=== PATIENT | male | born 1985 | race Caucasian/White ===

== ENCOUNTER 2025-08-09 06:13 | Inpatient (IN) | payer MEDICAID, SELFPAY ==
[2025-08-09] VITALS (9 sets, daily range): BP systolic 123–138; BP diastolic 65–100; PULSE 74–104; RESP 13–19; TEMP 36.7–37.3; O2SAT 93–99; BMI 31.1
--- NOTE | 2025-08-09 | ECG_ITS ---
Test Reason : SEIZURE Blood Pressure : */* mmHG Vent. Rate : 98 BPM Atrial Rate : 98 BPM P-R Int : 152 ms QRS Dur : 94 ms QT Int : 358 ms P-R-T Axes : 70 24 46 degrees QTcB Int : 457 ms Normal sinus rhythm Nonspecific ST abnormality Abnormal ECG No previous ECGs available Referred By: Generic ED Physician Electronically Signed By: SLADE TOMLIN MD
--- NOTE | ~2025-08-09 | CT_ITS ---
CLINICAL HISTORY: trauma, left orbital trauma CT maxillofacial without contrast Comparison: None provided Findings: No acute fractures. No dislocations. Temporomandibular joints are intact. There is ethmoid sinusitis. There is a large left periorbital and scalp hematoma. Visualized intracranial contents are within normal limits. No foreign bodies. IMPRESSION: 1. No acute bony abnormalities. 2. Large left periorbital and frontal scalp hematoma. 3. Ethmoid sinusitis. This document has been electronically signed by: Nathan Marroquin MD on 08/09/2025 07:54:58
--- NOTE | ~2025-08-09 | CT_ITS ---
CLINICAL HISTORY: trauma, head injury after seizure CT head without contrast Comparison: None provided Findings: No intra-axial mass, midline shift, hydrocephalus, or acute hemorrhage. No significant atrophy-like change or white matter disease. The visualized paranasal sinuses and mastoid air cells are normal. There is a large left frontal periorbital and scalp hematoma. No skull fracture. IMPRESSION: 1. No acute intracranial findings. 2. Large left frontal periorbital and scalp hematoma. This document has been electronically signed by: Nathan Marroquin MD on 08/09/2025 07:49:03
--- NOTE | ~2025-08-09 | XR_ITS ---
CLINICAL HISTORY: sob 1 view chest x-ray. Comparison: None provided Findings: The lungs appear clear. There is no consolidation, effusion, or pneumothorax. Cardiomediastinal silhouette is within normal limits. IMPRESSION: No acute cardiopulmonary abnormality. This document has been electronically signed by: Mp Fu MD on 08/10/2025 02:19:50
--- NOTE | ~2025-08-09 | CT_ITS ---
CLINICAL HISTORY: head injury, post-ictal CT cervical spine without contrast Comparison: None provided Findings: Normal vertebral body alignment. No significant degenerative change. No acute fractures or dislocations. No acute findings on limited view of the intracranial contents. No cervical fluid collections or masses. Lung apices are clear. IMPRESSION: No acute findings. This document has been electronically signed by: Nathan Marroquin MD on 08/09/2025 07:50:12
--- NOTE | 2025-08-09 06:22 | ED.GENADULT ---
HPI - General Adult General Chief complaint: Seizure Stated complaint: Seizure, Fall Headstrike Time Seen by Provider: 08/09/25 06:22 History of Present Illness ED Provider: Rahul GOLDSTEIN narrative: The patient is a 40-year-old male with a history of a seizure disorder and also opioid use disorder on methadone. He was apparently in the parking lot of the [facility] this morning. He says that he had driven himself to the methadone clinic at the [facility] for his usual morning dose. Apparently while in the parking lot he had a seizure. He had obvious trauma to the left forehead and was brought to the hospital. The patient remembers arriving at the hospital but does not remember anything else. The patient was not able to tell me his usual medications. I contacted the [facility] pharmacy and was told that he takes Depakote delayed release 500 mg b.i.d.. He also takes gabapentin 300 mg b.i.d.. The patient says he is an alcoholic. He has had an alcohol withdrawal seizure in the past. He says he has not had a drink for a few days. Related Data Home Medications ?Medication ?Instructions ?Recorded ?Confirmed acamprosate 333 mg tablet,delayed 333 mg PO TID 08/09/25 08/09/25 release clonidine HCl 0.1 mg tablet 0.1 mg PO TID PRN RLS 08/09/25 08/09/25 cyclobenzaprine 10 mg tablet 10 mg PO TID PRN muscle spasms 08/09/25 08/09/25 divalproex 500 mg tablet,delayed 500 mg PO Q12H 08/09/25 08/09/25 release gabapentin 300 mg capsule 300 mg PO BID 08/09/25 08/09/25 methocarbamol 750 mg tablet 750 mg PO TID PRN muscle relaxation 08/09/25 08/09/25 trazodone 50 mg tablet 50 - 100 mg PO BEDTIME PRN insomnia 08/09/25 08/09/25 Allergies Allergy/AdvReac Type Severity Reaction Status Date / Time No Known Allergies Allergy Verified 08/09/25 06:23 Review of Systems Review of Systems: Yes all other systems are reviewed and are negative FORMERLY [facility], [facility] Past Medical History Surgical History (Updated 09/15/21 @ 09:39 by VIOLET Elena) History of right inguinal hernia repair Family History Family History (Updated 09/15/21 @ 09:40 by VIOLET Elena) Mother Lung cancer Social History Social History Smoked in Last 30 Days: Yes Advance Directives: No Advance Directives Information Provided: No Physical Exam ED Vital Signs: Vital Signs - 24 hr 08/09/25 06:25 08/09/25 11:05 Temperature 98.6 F 98.6 F Pulse Rate 90 104 H Respiratory Rate 18 19 Blood Pressure 126/100 H 138/72 Pulse Oximetry 93 96 Oxygen Delivery Method Room Air Room Air BMI result Body Mass Index 31.1 Const Other: The patient is a chronically ill-appearing 40-year-old. He has a large area of swelling in the region of the left periorbital region. HENMT Other: There is a lot of soft tissue swelling in the region of the left eyebrow and to the left periorbital area generally. There is a laceration to the skin of the left upper eyelid. This is a horizontally oriented laceration that is parallel to the margin of the eyelid but does not involve the margin of the eyelid itself. Eyes Other: Pupils are round equal, extraocular movements are intact. The patient is able to open the left eye but only minimally because of the soft tissue swelling from the bruising. Nevertheless I was able to visualize the left eye and it looked quite uninjured. The left pupil appeared normal. The conjunctiva was normal as well. Eye movements seemed normal. There is a horizontally oriented laceration about 1.5 cm in length on the lower portion of the left upper eyelid. The laceration is parallel to the eyelid margin but does not cross the eyelid margin. The patient is able to open the eye and there was no suggestion that there is any injury to the tarsal plate. Neck Other: No posterior midline C-spine tenderness. The patient did not seem to have pain with moving his neck but I did not feel that he has a reliable exam given his recent seizure and the head injury. Resp Effort & Inspection: normal respiratory effort Auscultation: clear to auscultation bilaterally Cardio Rate: regular rate Rhythm: regular rhythm Heart sounds: S1 normal heart sound present and S2 normal heart sound present GI Other: Abdomen is soft and nontender Skin Other: The patient has soft tissue swelling of the left periorbital area associated with a laceration through the skin of the upper eyelid. Elsewhere the skin is unremarkable. Neuro Other: The patient was awake and alert. He had a very vague affect. Pupils were round equal, eye movements were intact, face was symmetrical, speech was without dysarthria or aphasia. He had symmetrical tone in his extremities. He had a non lateralizing exam. Extrem Other: No deformities or significant abnormality to the extremities. Medications Administered Generic Name Dose Route Start Last Admin Trade Name Sherrie PRN Reason Stop Dose Admin Enoxaparin Sodium 40 mg 08/09/25 15:00 08/09/25 16:34 Enoxaparin Sodium 40 Mg/0.4 Ml Syringe SUBCUT 40 mg Q24H PATRICIA Administration Lactated Ringer's 1,000 mls @ 100 mls/hr 08/09/25 16:45 08/09/25 16:40 Lr IVCONT 100 mls/hr .Q10H PATRICIA Administration Sodium Chloride 3 ml 08/09/25 16:00 08/09/25 16:36 0.9 % Sodium Chloride Flush 3 Ml Syringe IVFLUSH 3 ml QSHIFT PATRICIA Administration Discontinued Medications Generic Name Dose Route Start Last Admin Trade Name Sherrie PRN Reason Stop Dose Admin Bacitracin 1 appl 08/09/25 12:10 08/09/25 12:53 Bacitracin Oint 0.9 Gm Packet TOPICAL 08/09/25 12:11 1 appl ONCE ONE Administration Protocol Diazepam 10 mg 08/09/25 06:22 08/09/25 06:27 Diazepam 10 Mg/2 Ml Cartridge IVPUSH 08/09/25 06:23 10 mg STAT STA Administration Diazepam 10 mg 08/09/25 08:23 08/09/25 08:33 Diazepam 10 Mg/2 Ml Cartridge IVPUSH 08/09/25 08:24 10 mg STAT STA Administration Diazepam 10 mg 08/09/25 08:30 08/09/25 08:37 Diazepam 10 Mg/2 Ml Cartridge IVPUSH 08/09/25 08:31 10 mg STAT STA Administration Diazepam 10 mg 08/09/25 08:55 08/09/25 08:58 Diazepam 10 Mg/2 Ml Cartridge IVPUSH 08/09/25 08:56 10 mg STAT STA Administration Diazepam 10 mg 08/09/25 10:26 08/09/25 10:31 Diazepam 10 Mg/2 Ml Cartridge IVPUSH 08/09/25 10:27 10 mg STAT STA Administration Gabapentin 300 mg 08/09/25 10:26 08/09/25 10:48 Gabapentin 300 Mg Capsule PO 08/09/25 10:27 300 mg ONCE ONE Administration Valproic Acid 1,000 mg/ 60 mls @ 60 mls/hr 08/09/25 07:34 08/09/25 09:56 Dextrose IV 08/09/25 08:33 Infused ONCE ONE Infusion Lidocaine HCl 10 ml 08/09/25 10:54 08/09/25 11:47 Lidocaine Hcl 1 % Mpf 5 Ml Vial INFILTRATI 08/09/25 10:55 10 ml ONCE ONE Administration Methadone HCl 10 mg 08/09/25 08:23 08/09/25 11:47 Methadone Hcl 20 Mg/2 Ml Oral.Conc PO 08/09/25 08:24 10 mg ONCE ONE Administration Phenobarbital Sodium 452 mg 08/09/25 10:00 08/09/25 09:44 Phenobarbital Sodium 130 Mg/Ml Im Once IM 08/09/25 10:01 452 mg ONCE ONE Administration Phenobarbital Sodium 339 mg 08/09/25 13:00 08/09/25 16:34 Phenobarbital Sodium 130 Mg/Ml Vial Im Q3hx2 IM 08/09/25 16:01 339 mg Q3H PATRICIA Administration Procedures Laceration Laceration 1: Site: face (Left upper eyelid) Side (If applicable): left Size (cm): 1.5 Description: linear Depth: simple, single layer Local Anesthetic: lidocaine 1% (Administered under sterile conditions as a supraorbital nerve block) Amount of anesthesia used (mL): 3 Pre-repair: wound explored, irrigated extensively and deep structures intact Skin layer closed with: nylon Size (cm): 6-0 Number of sutures: 3 Medical Decision Making Medical Decision Making [facility] Narrative: The patient is a 40-year-old male who was brought to the hospital by ambulance after having had a seizure. I find on my initial evaluation I thought that he had simply had a breakthrough seizure because he has a history of a seizure disorder, apparently on Depakote. He was given 10 mg of Iv Diazepam Initially. Despite that he had a seizure in the emergency room and he received several additional doses of IV diazepam. He ultimately admitted to also being an alcoholic and having alcohol withdrawal seizures when the past and not having had any alcohol in the last couple of days. Interestingly the patient was going to a methadone clinic today where he apparently he receives only 10 mg of methadone daily. I contacted [facility]. [facility] was able to tell me that his usual medications are [address] prabhakar and gabapentin 300 mg BID. The patient was sent for CT scan of the head, facial bones, and cervical spine given the facial trauma. He has no signs of intracranial trauma facial fractures or cervical fracture. In addition to several doses of IV diazepam the patient was given 1000 mg of IV Depakote as his Depakote level was undetectable. The patient was ultimately able to admit to having not been compliant with his Depakote. Since the patient was having persistent tachycardia and a high CIWA scale he was also given phenobarbital. Ultimately he seemed to stabilize. At that point I was able to address his left eyelid laceration. I feel this is a superficial laceration to the skin of the upper eyelid rather than a laceration with the an injury to the underlying structure. I also felt there was no underlying ocular injury. Under sterile conditions I injected 1% lidocaine as a supraorbital nerve block to anesthetize his upper eyelid. The skin was prepped with Betadine. I cleaned the laceration with saline. I explored the wound. The underlying structures seemed intact. I closed the wound with 3 simple interrupted stitches using 6 0 Prolene with adequate wound edge approximation and hemostasis of the bleeding from the wound. Stitches should be removed in 5-7 days. Lab Data 08/09/25 06:25 08/09/25 06:25 Labs: Lab Results 08/09/25 08/09/25 08/09/25 Range/Units 06:25 09:32 12:08 WBC 8.6 (4.8-10.8) X10*3/uL RBC 4.65 (4.60-5.80) X10*6/uL Hgb 15.4 (14.0-18.0) g/dl Hct 43.6 (42.0-52.0) % MCV 93.8 (80.0-98.0) fL MCH 33.1 H (27.0-33.0) pg MCHC 35.3 (31.0-36.0) g/dl RDW 13.7 (11.0-16.0) % Plt Count 184 (160-400) X10*3/uL MPV 9.3 L (9.4-12.4) fL Immature Gran % (Auto) 0.8 H (0.0-0.4) % Neut % (Auto) 57.8 (45-73) % Lymph % (Auto) 28.1 (20-40) % [place] % (Auto) 8.8 (2-11) % Eos % (Auto) 3.0 (0-4) % Baso % (Auto) 1.5 (0-2) % Lymph # (Auto) 2.4 (1.2-4.9) X10*3/uL [place] # (Auto) 0.8 (0.1-1.2) X10*3/uL Eos # (Auto) 0.3 (0.0-0.4) X10*3/uL Baso # (Auto) 0.1 (0.0-0.2) X10*3/uL Abs Immat Gran (auto) 0.07 H (0.00-0.03) X10*3/uL Absolute Neuts (auto) 5.0 (2.0-8.3) x10*3/uL Absolute Nucleated RBC 0.000 (0.0-0.012) X10*3/uL Nucleated RBC % (auto) 0.0 (0.0-0.2) /100WBC Sodium 142 (135-145) mmol/L Potassium 3.8 (3.3-5.1) mmol/L Chloride 104 (96-108) mmol/L Carbon Dioxide 21 L (22-29) mmol/L Anion Gap 21 H (12-20) BUN 15 (9-16) mg/dL Creatinine 0.60 (0.5-1.4) mg/dL Estim Creat Clear Calc 194.3 Estimated GFR > 60 Random Glucose 159 H (60-115) mg/dL Lactic Acid 6.2 H* (0.5-2.0) mmol/L Lactic Acid F/U @ 2Hr 3.6 H* (0.5-2.0) mmol/L Lactic Acid F/U @ 4Hr 1.8 (0.5-2.0) mmol/L Calcium 10.0 (8.4-10.2) mg/dL Total Bilirubin 0.7 (0.0-1.0) mg/dL AST 98 H (5-37) U/L ALT 68 H (0-40) U/L Alkaline Phosphatase 91 (39-117) U/L Troponin I High Sens 4.6 (<3.5-35.0) ng/L Total Protein 8.0 (6.5-8.0) g/dL Albumin 4.8 (3.5-5.0) g/dL Valproic Acid < 12.5 L (50.0-100.0) mcg/mL Ethyl Alcohol < 10 mg/dL Critical Care Time Critical Care Time Critical Care Time: Yes Total Critical Care Time: 35 Attestation: The patient was critically ill with a high probability of imminent or life-threatening deterioration. ?I spent greater than 30 minutes of discontinuous time evaluating the patient, delivering critical care at the bedside, discussing evaluating data with consultants. ?Critical care time does not include time spent performing separately billable procedures or teaching. ?Time spent performing critical care with 35 minutes. Discharge Plan Discharge Clinical Impression: Seizure, Alcohol withdrawal, Left eyelid laceration, Traumatic contusion of left periorbital region Patient Disposition: Admitted As Inpatient
[2025-08-09] MEDS: diazePAM 10 MG/2 ML CARTRIDGE IVPUSH ×5 (06:27→10:31)
[2025-08-09 06:31] LABS: MANUAL DIFF FLAG NO
[2025-08-09 06:32] LABS: Hematocrit 43.6 % (42.0-52.0); Hemoglobin 15.4 g/dl (14.0-18.0); Imm Gran Abs Auto 0.07 X10*3/uL (0.00-0.03); Imm Gran Pct Auto 0.8 % (0.0-0.4); Lymphocytes Absolute Auto 2.4 X10*3/uL (1.2-4.9); Mean Corpuscular HGB Conc 35.3 g/dl (31.0-36.0); Mean Corpuscular Hemoglobin 33.1 pg (27.0-33.0); Mean Corpuscular Volume 93.8 fL (80.0-98.0); NRBC Abs Auto 0.000 X10*3/uL (0.0-0.012); NRBC Pct Auto 0.0 /100WBC (0.0-0.2); Platelet Count 184 X10*3/uL (160-400); Red Blood Count 4.65 X10*6/uL (4.60-5.80); White Blood Count 8.6 X10*3/uL (4.8-10.8)
--- NOTE | 2025-08-09 06:36 | PC.NURSE ---
pt came in [facility] after a seizure and a facial injury from the fall, pt L eye is swollen shut with a laceration on the eyelide and above the eyebrow. Pt unsure where he is, the day or year. provider bedside, medicated per MAR seizure precautions in.
[2025-08-09 06:58] LABS: Troponin-I High Sensitivity 4.6 ng/L (<3.5-35.0)
[2025-08-09 07:05] LABS: Alanine Aminotransferase 68 U/L (0-40); Albumin Level 4.8 g/dL (3.5-5.0); Alkaline Phosphatase 91 U/L (39-117); Anion Gap 21 (12-20); Aspartate Amino Transferase 98 U/L (5-37); Blood Urea Nitrogen 15 mg/dL (9-16); Calcium 10.0 mg/dL (8.4-10.2); Carbon Dioxide 21 mmol/L (22-29); Chloride 104 mmol/L (96-108); Creatinine Clr Calc Pharmacy 194.3; Estimated Glomerular Filt Rate > 60; Potassium 3.8 mmol/L (3.3-5.1); Sodium 142 mmol/L (135-145); Total Protein 8.0 g/dL (6.5-8.0)
[2025-08-09 08:29] LABS: Reflex Lactate? Lactic Acid Added
[2025-08-09] MEDS: Valproic Acid (as Sodium Salt) 1,000 MG in Dextrose 5 % 50 ML 60 MG IV (08:33)
--- OUTSIDE RECORDS SUMMARY | 2025-08-09 08:56 | XMS_ITS | Encounter Summary ---
Author Organization [facility] Address [address] [place] [address] [place] [id number] Phone Care Team Providers Care Orthopedic Rn Name Role Phone Pcp, Unknown Primary Care Provider Unavailabl e Encounter Details Date Type Department Care Team (Late st Contact Info) Description 02/02/2025 Procedure Pass [facility], Ct Scan - [facility] [address] [place] [address] Social History Tobacco Use Types Packs/Day Years Used Date Smoking Tobacco: Never Assessed Education Answer Date Recorded Are you interested in more education? Not on kathleen e 02/02/2025 Are you concerned about learning? Not on file 02/02/2025 No 02/02/2025 No 02/02/2025 Digital Access Answer Date Recorded No 02/02/2025 No 02/02/2025 Reliable internet access at home? Not on file 02/02/2025 Device with a working camera? Not on file Intimate Partner Violence Answer Date R ecorded Are you denied basic needs s uch as food, clothing, or medical care? No 02/02/2025 In the past 12 months have y ou been in a relationship with a person who hurts, threatens, or tries to control you? No 02/02/2025 Are you denied basic needs s uch as food, clothing, or medical care? No 02/02/2025 In the past 12 months have y ou been in a relationship with a person who hurts, threatens, or tries to control you? No 02/02/2025 Sex and Gender Information Value Date Recorded Sex Assigned at Not on file Legal Sex Male 5:18 PM EDT Gender Identity Not on file Sexual Orientation Not on file documented as of this encounter Functional Status * Calculated C-SSRS Risk Score (Lifetime/Recent) Answer Date of Assessment Author No Risk Indicated 02/02/2025 5:51 PM EDT Estevan Plata RN * [place] Suicide Severity Rating Scale (Screener/Recent Self-Report) Question Answer Date of Assessment Author 1. Wish to be (Past 1 Month) No 02/02/2025 5:51 PM EDT Estevan Plata RN 2. Non-Specific Active Suici mandi Thoughts (Past 1 Month) No 02/02/2025 5:51 PM EDT Kojo Plata RN 6. Suicidal Behavior (Lifetime) No 5:51 PM EDT Estevan Plata RN documented as of this encounter Plan of Treatment Not on file documented as of this encounter Visit Diagnoses Not on filedocumented in this encounter Additional Health Concerns Infection Onset Date Last Indicated Resolved Time CoV-Risk 02/02/2025 02/02/2025 02/13/2025 1:21 AM EDT documented as of this encounter Care Teams Orthopedic Rn Relationship Specialty Start Date End Date Pcp, Unknown PCP - General 02/02/25 documented as of this encounter Additional Source Comments The information contained in this document represents components of the legal health record. It is not the complete legal health record.[facility]
--- OUTSIDE RECORDS SUMMARY | 2025-08-09 08:56 | XMS_ITS | Clinical Summary ---
Author Organization [facility] Address [address] [place] [id number] Phone Care Team Providers Care Linoleum Layer Helper Name Role Phone Pcp, Unknown Primary Care Provider Unavailabl e Allergies No known active allergies Medications No known medications Social History Tobacco Use Types Packs/Day Years [...] on file Sexual Orientation Not on file Last Filed Vital Signs Vital Sign Reading Time Taken Comments Blood Pressure 133/84 02/02/2025 5:31 PM EDT Pulse 104 02/02/2025 5:31 PM EDT Temperature 36.2 C (97.2 F) 02/02/2025 5:31 PM EDT Respiratory Rate 22 02/02/2025 5:31 PM EDT Oxygen Saturation 93% 02/02/2025 5:31 PM EDT Inhaled Oxygen Concentration - - Weight - - Height - - Body Mass Index - - Plan of Treatment Health Maintenance Due Date Last Done Comments Adult Td,Tdap Booster 1983 LIPID PANEL 1983 DEPRESSION SCREENING 1995 SMOKING Hx and SMOKELESS TOB ACCO SCREENING 1996 HEPATITIS C SCREENING 2001 HIV ONE-TIME SCREENING (18-6 5 YEARS) 2001 INFLUENZA VACCINE (#1) 2025 COVID-19 VACCINE (2023-2 5 season) 2025 HEPATITIS A VACCINES Aged Out No long er eligible based on patient's age to complete this topic HIB VACCINES Aged Out No longer eligi ble based on patient's age to complete this topic MENINGOCOCCAL VACCINES (ACWY) Aged Out No longer eligible based on patient's age to complete this topic MENINGOCOCCAL VACCINES (B) Aged Out N o longer eligible based on patient's age to complete this topic PNEUMOCOCCAL VACCINES (0-49 years) Aged Out No longer eligible based on patient's age to complete this topic Medical Devices Not on file Care Teams Linoleum Layer Helper Relationship Specialty Start Date End Date Pcp, Unknown PCP - General 02/02/25 Additional Source Comments The information contained in this document represents components of the legal health record. It is not the complete legal health record.[facility]
--- NOTE | 2025-08-09 09:20 | PC.NURSE ---
Pt confused, ? posturing, not answering questions appropriately; no tonic-clonic activity noted, but marked mentation change; MD made aware and pt medicated per orders with more Valium; pt restless on stretcher and CIWA remains over 10
--- NOTE | 2025-08-09 09:30 | PC.NURSE ---
Pt reports this morning that he is withdrawing from ETOH and also didn't receive his daily 10mg of Methadone; pt noted to be tremulous at 0830; made aware; this RN was at bedside pushing IV Valium when pt began having grand mal seizure; non-rebreather applied at 15 ltr as pt was becoming cyanotic; another 10 ng Valium IVP gv by LIOR Benz; pt's IV Vaplroate started per orders IV; seizure activity last approx 3 minutes and pt post-ictal afterwards, pulling at lines and equipment; another 10mg IV Valium gv for agitation; pt still slightly restless; sitter at bedside for pt safety
[2025-08-09] MEDS: PHENobarbitaL sodium 130 MG/ML IM ONCE 452 MG IM (09:44)
--- NOTE | 2025-08-09 09:50 | PC.NURSE ---
Pt more oriented at this time; oriented to self, location ; confused to date and events; pt medicated per orders with IM phenobarbital; pt reports he drinks quite a bit of vodka daily; reports only one other withdrawal seizure in the past, unknown when; vss at this time; pt 95% RA; seizure precautions remain in place
[2025-08-09 10:29] LABS: ~Lactic Acid-LAB USE ONLY 3.6 mmol/L (0.5-2.0)
[2025-08-09 11:35] LABS: Reflex Lactate? 2 Y
[2025-08-09] MEDS: methADONE HCl 20 MG/2 ML ORAL.CONC 10 MG PO (11:47)
[2025-08-09] MEDS: Lidocaine HCl 1 % MPF 5 ML VIAL 10 ML INFILTRATI (11:47)
--- NOTE | 2025-08-09 11:51 | PC.NURSE ---
Pt less restless but remains anxious and visibly shaky; MD aware; vss; MD at bedside to suture L eyelid; pt tolerated well; 3 sutures to upper eyelid
[2025-08-09 12:30] LABS: ~Lactic Acid-LAB USE ONLY 1.8 mmol/L (0.5-2.0)
[2025-08-09] MEDS: PHENobarbitaL sodium 130 MG/ML VIAL IM Q3Hx2 339 MG IM ×2 (12:52→16:34)
--- NOTE | 2025-08-09 14:32 | PHA.MEDREC ---
Pharmacy Consult ? Medication Reconciliation Pharmacy has completed the medication reconciliation Used claim history as patient didn't know any medications. He says he hasnt taken them in a while.
--- NOTE | 2025-08-09 14:52 | PM.IMHP ---
History of Present Illness Date of Service: 08/09/25 Chief Complaint: Seizure, alcohol use 40-year-old man presented to the ER after a seizure and fall. Patient reports that this is the 2nd seizure he has had. He reports that he drinks at least a half a gal of vodka every day, he can not remember the last time he had been sober for a prolonged period of time. Apparently patient had a seizure fell and injured his left eye. He received 5 sutures. He was in the parking lot of [facility] [employer] because he went to go get his methadone and had a seizure and fell onto the pavement. Face CT showed no acute bony abnormalities, large left periorbital and frontal. Head and cervical spine CT negative for any acute abnormality. Initial lactic acid elevated at 6.2 but down to 1.8. Plan will be to admit patient for further management of likely alcohol withdrawal seizure. Review of Systems Review of Systems: Denies any recent fever chills or decrease in appetite respiratory denies any shortness of breath or cough cardiovascular denied chest pain gastrointestinal denies any dysphagia abdominal pain nausea vomiting or diarrhea genitourinary denies any dysuria frequency or hematuria musculoskeletal denies any joint pain or swelling neuropsych denies any weakness or seizures all other systems reviewed are negative [facility] Family History (Updated 09/15/21 @ 09:40 by VIOLET Elena) Mother Lung cancer Surgical History (Updated 09/15/21 @ 09:39 by VIOLET Elena) History of right inguinal hernia repair Social History Smoked in Last 30 Days: Yes Advance Directives: No Advance Directives Information Provided: No Meds Allergies Allergy/AdvReac Type Severity Reaction Status Date / Time No Known Allergies Allergy Verified 08/09/25 06:23 Active Medications: Current Medications Acetaminophen (Acetaminophen 325 Mg Tablet) 650 mg PO Q6H PRN PRN Reason: Pain, Mild 1-3,fever,headache Calcium Carbonate (Calcium Carbonate 750 Mg Tab.Chew) 750 mg PO Q4H PRN PRN Reason: Heartburn Enoxaparin Sodium (Enoxaparin Sodium 40 Mg/0.4 Ml Syringe) 40 mg SUBCUT Q24H [facility] Magnesium Hydroxide (Milk Of Magnesia 30 Ml Oral.Susp) 30 ml PO DAILY PRN PRN Reason: Constipation Melatonin (Melatonin 3 Mg Tablet) 6 mg PO BEDTIME PRN PRN Reason: Insomnia Pharmacy Consult (Consult Rx Etoh Phenob Im/Po) 1 each MISCELLANE ONCE PRN; Protocol PRN Reason: Consult order Phenobarbital (Phenobarbital 30 Mg Tablet) 60 mg PO BID [facility] Stop: 08/11/25 09:01 Phenobarbital (Phenobarbital 30 Mg Tablet) 30 mg PO BID [facility] Stop: 08/13/25 09:01 Phenobarbital (Phenobarbital 30 Mg Tablet) 30 mg PO DAILY [facility] Stop: 08/14/25 09:01 Phenobarbital Sodium (Phenobarbital Sodium 130 Mg/Ml Vial Im Q3hx2) 339 mg IM Q3H [facility] Stop: 08/09/25 16:01 Last Admin: 08/09/25 12:52 Dose: 339 mg Sodium Chloride (0.9 % Sodium Chloride Flush 3 Ml Syringe) 3 ml IVFLUSH QSHIFT [facility] Home Medications ?Medication ?Instructions ?Recorded ?Confirmed ?Last Taken ?Type acamprosate 333 mg tablet,delayed 333 mg PO TID 08/09/25 08/09/25 Unknown History release clonidine HCl 0.1 mg tablet 0.1 mg PO TID PRN RLS 08/09/25 08/09/25 Unknown History cyclobenzaprine 10 mg tablet 10 mg PO TID PRN muscle spasms 08/09/25 08/09/25 Unknown History divalproex 500 mg tablet,delayed 500 mg PO Q12H 08/09/25 08/09/25 Unknown History release gabapentin 300 mg capsule 300 mg PO BID 08/09/25 08/09/25 Unknown History methocarbamol 750 mg tablet 750 mg PO TID PRN muscle relaxation 08/09/25 08/09/25 Unknown History trazodone 50 mg tablet 50 - 100 mg PO BEDTIME PRN insomnia 08/09/25 08/09/25 Unknown History Physical Exam Vital Signs and Narrative: Vital Signs: Last Vital Signs Temp 98.6 F 08/09/25 11:05 Pulse 104 H 08/09/25 11:05 Resp 19 08/09/25 11:05 BP 138/72 08/09/25 11:05 Pulse Ox 96 08/09/25 11:05 O2 Del Method Room Air 08/09/25 11:05 BMI result Body Mass Index 31.1 Appearing in no acute distress head is normocephalic atraumatic eyes pupils are PERRLA sclera is anicteric mouth throat mucous membranes are intact and moist neck is supple no lymphadenopathy, no JVD noted lung sounds are clear to auscultation heart regular rate rhythm, clear S1, S2 positive bowel sounds, abdomen is soft, nontender neuro patient is alert x3, no focal deficits Results Labs 08/09/25 06:25 08/09/25 06:25 Labs: Laboratory Results - last 24 hr 08/09/25 08/09/25 08/09/25 06:25 09:32 12:08 MCV 93.8 MCH 33.1 H MCHC 35.3 RDW 13.7 Plt Count 184 MPV 9.3 L Immature Gran % (Auto) 0.8 H Neut % (Auto) 57.8 Lymph % (Auto) 28.1 [place] % (Auto) 8.8 Eos % (Auto) 3.0 Baso % (Auto) 1.5 Lymph # (Auto) 2.4 [place] # (Auto) 0.8 Eos # (Auto) 0.3 Baso # (Auto) 0.1 Abs Immat Gran (auto) 0.07 H Absolute Neuts (auto) 5.0 Absolute Nucleated RBC 0.000 Nucleated RBC % (auto) 0.0 Anion Gap 21 H Estim Creat Clear Calc 194.3 Estimated GFR > 60 Random Glucose 159 H Lactic Acid 6.2 H* Lactic Acid F/U @ 2Hr 3.6 H* Lactic Acid F/U @ 4Hr 1.8 Calcium 10.0 Total Bilirubin 0.7 AST 98 H ALT 68 H Alkaline Phosphatase 91 Total Protein 8.0 Albumin 4.8 Valproic Acid < 12.5 L Ethyl Alcohol < 10 Assessment and Plan (1) Alcohol withdrawal: Status: Acute Plan 40 year old man admitted with breakthrough seizure Breakthrough seizure Seizure precautions Neurology consultation Likely secondary to alcohol withdrawal Alcohol withdrawal seizure On phenobarbital Seizure precautions Lactic acidosis Likely secondary to seizure, resolved Mental health Continue home medications Opiate abuse On methadone Alcohol abuse Started on phenobarbital protocol Transaminitis Likely secondary to alcohol use Obesity class 1. BMI 31.1 Discussed importance of weight management as this may be contributing to worsening of other comorbidities DVT prophylaxis with Lovenox Full code Quality Stroke Does the patient have a stroke diagnosis?: No VTE Prior VTE?: No VTE Risk Level:: Medical - moderate - high VTE Device Contraindication: Treatment Not Indicated VTE Drug Contraindication: N/A - Med Ordered
--- NOTE | 2025-08-09 16:23 | PC.NURSE ---
Pt relaxed at this time; feels warm to the touch; rectal temp 100.2; provider made aware; UA pending; vss@baseline; S.O. at bedside
[2025-08-09 16:35] LABS: Appearance Urine Turbid; Glucose Urine UA Negative (Negative); PH 5.5 (5.0-9.0); Specific Gravity - Urine 1.020 (1.005-1.025); UMIC TRIGGER UACC YES
[2025-08-09] MEDS: 0.9 % Sodium Chloride Flush 3 ML SYRINGE IVFLUSH (16:36)
[2025-08-09] MEDS: Lactated Ringers 1,000 ML 100 ML IVCONT (16:40)
[2025-08-09 16:44] LABS: Cannabinoid Screen Urine Not Detected (Not Detect)
--- NOTE | 2025-08-09 20:18 | PC.NURSE ---
pt used urinal in bed. 425mls orange/red output. c/o shoulder pain at this time
--- NOTE | 2025-08-09 20:38 | PC.NURSE ---
Patient repositioned to the right side to give left shoulder a break. Patient given a pillow to off load shoulder due to pain. Pt given flexeril for pain relief. VSS, given water with medication. Patient resting comfortably, checked if anything is needed in the meantime. Pt stated no, call brown by side. Siderails up, covered with seizure pads.
--- NOTE | 2025-08-09 21:20 | PC.NURSE ---
pt noted to be very diaphoretic, gown and blankets wet, new gown given, blanket changed, pt wiped sweat off face and body. no complaints at this time, did not know he was sweating, was resting. rectal temp taken 99.1.
--- NOTE | 2025-08-09 22:40 | PC.NURSE ---
Patient having multiple periods drenched in sweat, causing a total bed change. Made Mike Vargas aware, stated to monitor and give fluids as patient has been on LR maintenance fluids. Also made aware that there are no PRN meds for a high scoring CIWA.
--- NOTE | 2025-08-09 23:10 | PC.NURSE ---
Spoke with Mike Vargas, dextrose, thiamine, and D5LR were discussed to be ordered for patient, along with a CXR. Still monitoring periods of sweat, watching for tachycardia, dyspnea or changes in vitals.
[2025-08-09] MEDS: Thiamine HCL 100 MG in 0.9 % Sodium Chloride 100 ML 202 MG IV (23:21)
[2025-08-09] MEDS: Dextrose 5 % and Lactated Ring 1,000 ML 100 ML IVCONT (23:21)
[2025-08-10] VITALS (7 sets, daily range): BP systolic 112–143; BP diastolic 64–84; PULSE 69–87; RESP 12–18; TEMP 36.2–36.9; O2SAT 95–97
--- NOTE | 2025-08-10 01:42 | PC.NURSE ---
500mls orange urine in urinal
--- NOTE | 2025-08-10 07:19 | HO.PM.IMPN ---
Subjective Subjective Date of Service: 08/10/25 Interval History: Admitted overnight Initiated on phenobarb for alcohol withdrawal Fiancee at the bedside Continue to monitor on telemetry Pain control with Tylenol and Oxy Review of Systems Review of Systems: Yes all other systems are reviewed and are negative Physical Exam Exam: Exam: General: AOx3, mildly somnolent, has multiple bruises on his left upper face Resp: CTA bilaterally CVS: S1, S2, RRR GI: +BS, NT, no distention Left arm in sling s/p fall Vital Signs: Vital Signs: Last Vital Signs Temp 98.4 F 08/10/25 06:08 Pulse 72 08/10/25 06:08 Resp 17 08/10/25 06:08 BP 112/65 08/10/25 06:08 Pulse Ox 96 08/10/25 06:08 O2 Del Method Room Air 08/10/25 06:08 BMI result Body Mass Index 31.1 Objective Data Active Medications Acetaminophen (Acetaminophen 325 Mg Tablet) 650 mg PO Q6H PRN PRN Reason: Pain, Mild 1-3,fever,headache Last Admin: 08/09/25 18:22 Dose: 650 mg Documented By: SALONI Calcium Carbonate (Calcium Carbonate 750 Mg Tab.Chew) 750 mg PO Q4H PRN PRN Reason: Heartburn Clonidine HCl (Clonidine Hcl 0.1 Mg Tablet) 0.1 mg PO TID PRN; Protocol PRN Reason: RLS Cyclobenzaprine HCl (Cyclobenzaprine Hcl 10 Mg Tablet) 10 mg PO TID PRN PRN Reason: muscle spasms Last Admin: 08/09/25 20:26 Dose: 10 mg Documented By: DIANA Divalproex Sodium (Divalproex Sodium 500 Mg Tablet.Dr) 500 mg PO Q12H [facility] Last Admin: 08/10/25 06:36 Dose: 500 mg Documented By: DIANA Enoxaparin Sodium (Enoxaparin Sodium 40 Mg/0.4 Ml Syringe) 40 mg SUBCUT Q24H [facility] Last Admin: 08/09/25 16:34 Dose: 40 mg Documented By: SALONI Gabapentin (Gabapentin 300 Mg Capsule) 300 mg PO BID [facility] Last Admin: 08/09/25 20:27 Dose: 300 mg Documented By: DIANA Lactated Ringer's (Lr) 1,000 mls @ 100 mls/hr IVCONT .Q10H [facility] Last Admin: 08/10/25 00:24 Dose: Not Given Documented By: DIANA Non-Admin Reason: Duplicate Order Thiamine HCl 100 mg/ Sodium (Chloride) 101 mls @ 202 mls/hr IV DAILY [facility] Last Infusion: 08/10/25 00:09 Dose: Infused Documented By: DIANA Dextrose/Lactated Ringer's (D5lr) 1,000 mls @ 100 mls/hr IVCONT .Q10H [facility] Last Admin: 08/09/25 23:21 Dose: 100 mls/hr Documented By: DIANA Magnesium Hydroxide (Milk Of Magnesia 30 Ml Oral.Susp) 30 ml PO DAILY PRN PRN Reason: Constipation Melatonin (Melatonin 3 Mg Tablet) 6 mg PO BEDTIME PRN PRN Reason: Insomnia Methocarbamol (Methocarbamol 750 Mg Tablet) 750 mg PO TID PRN PRN Reason: muscle relaxation Pharmacy Consult (Consult Rx Etoh Phenob Im/Po) 1 each MISCELLANE ONCE PRN; Protocol PRN Reason: Consult order Phenobarbital (Phenobarbital 30 Mg Tablet) 60 mg PO BID [facility] Stop: 08/11/25 09:01 Last Admin: 08/09/25 20:26 Dose: 60 mg Documented By: DIANA Phenobarbital (Phenobarbital 30 Mg Tablet) 30 mg PO BID [facility] Stop: 08/13/25 09:01 Phenobarbital (Phenobarbital 30 Mg Tablet) 30 mg PO DAILY [facility] Stop: 08/14/25 09:01 Sodium Chloride (0.9 % Sodium Chloride Flush 3 Ml Syringe) 3 ml IVFLUSH QSHIFT [facility] Last Admin: 08/10/25 06:36 Dose: Not Given Documented By: DIANA Non-Admin Reason: IV Running Labs 08/10/25 08:00 08/10/25 08:00 Labs: Laboratory Results - last 24 hr 08/09/25 08/09/25 08/09/25 06:25 09:32 12:08 Lactic Acid Lactic Acid F/U @ 2Hr 3.6 H* Lactic Acid F/U @ 4Hr 1.8 Urine Color Urine Appearance Urine pH Ur Specific [place] Urine Protein Urine Glucose (UA) Urine Ketones Urine Blood Urine Nitrite Ur Leukocyte Esterase Urine RBC Urine WBC Ur Squamous Epith Cells Urine Bacteria Hyaline Casts Urine Opiates Screen Ur Buprenorphine Scrn Ur Oxycodone Screen Urine Methadone Screen Urine Fentanyl Screen Ur Barbiturates Screen Ur Phencyclidine Scrn Ur Amphetamines Screen U Benzodiazepines Scrn Urine Cocaine Screen U Marijuana (THC) Screen Ethyl Alcohol < 10 08/09/25 08/09/25 14:00 23:28 Lactic Acid 2.0 Lactic Acid F/U @ 2Hr Lactic Acid F/U @ 4Hr Urine Color Yellow Urine Appearance Turbid Urine pH 5.5 Ur Specific [place] 1.020 Urine Protein 100 (2+) H Urine Glucose (UA) Negative Urine Ketones Trace Urine Blood Trace H Urine Nitrite Negative Ur Leukocyte Esterase Negative Urine RBC 0-2 Urine WBC 0-5 Ur Squamous Epith Cells 0-2 Urine Bacteria None Seen Hyaline Casts 0-2 Urine Opiates Screen Not Detected Ur Buprenorphine Scrn Not Detected Ur Oxycodone Screen Not Detected Urine Methadone Screen Positive H Urine Fentanyl Screen Not Detected Ur Barbiturates Screen Not Detected Ur Phencyclidine Scrn Not Detected Ur Amphetamines Screen Not Detected U Benzodiazepines Scrn Not Detected Urine Cocaine Screen Not Detected U Marijuana (THC) Screen Not Detected Ethyl Alcohol Assessment and Plan (1) Seizures concurrent with and due to substance withdrawal: Status: Acute Plan Patient with PMH notable for alcohol use disorder, EDWIN on methadone presented to the ED with what is likely presumed to be alcohol withdrawal seizures as he was returning from his methadone clinic. He is being admitted for monitoring and management of alcohol withdrawal seizures Alcohol use disorder, presenting with likely alcohol withdrawal seizures Patient is being placed on phenobarb for alcohol withdrawal Seizure precautions , acute intracranial pathology ruled out If the patient has another seizure, we will get an EEG and initiate seizure meds, however it is not indicated at this time Substance use disorder Continue methadone Addiction med consult DVT prophylaxis with Lovenox This note is constructed using voice recognition software. While every effort has been made to ensure accuracy, line helper errors may have been included. Quality Stroke Does the patient have a stroke diagnosis?: No VTE Prior VTE?: No VTE Risk Level:: Medical - moderate - high VTE Device Contraindication: Treatment Not Indicated VTE Drug Contraindication: N/A - Med Ordered
[2025-08-10 08:26] LABS: Magnesium 1.8 mg/dL (1.6-2.6); NRBC Abs Auto 0.000 X10*3/uL (0.0-0.012); NRBC Pct Auto 0.0 /100WBC (0.0-0.2); PLT CLUMP 1
[2025-08-10 08:28] LABS: Hematocrit 41.7 % (42.0-52.0); Hemoglobin 14.2 g/dl (14.0-18.0); Mean Corpuscular HGB Conc 34.1 g/dl (31.0-36.0); Mean Corpuscular Hemoglobin 32.4 pg (27.0-33.0); Mean Corpuscular Volume 95.2 fL (80.0-98.0); Red Blood Count 4.38 X10*6/uL (4.60-5.80)
[2025-08-10 08:34] LABS: Platelet Count 139 X10*3/uL (160-400); White Blood Count 8.5 X10*3/uL (4.8-10.8)
[2025-08-10 08:39] LABS: Anion Gap 13 (12-20); Blood Urea Nitrogen 8 mg/dL (9-16); Calcium 9.2 mg/dL (8.4-10.2); Carbon Dioxide 29 mmol/L (22-29); Chloride 100 mmol/L (96-108); Creatinine Clr Calc Pharmacy 182.1; Estimated Glomerular Filt Rate > 60; Potassium 4.2 mmol/L (3.3-5.1); Sodium 138 mmol/L (135-145)
[2025-08-10 08:51] LABS: Thyroid Stimulating Hormone 0.52 uIU/mL (0.32-4.0)
[2025-08-10] MEDS: Thiamine HCL 100 MG in 0.9 % Sodium Chloride 100 ML 202 MG IV (10:18)
[2025-08-10] MEDS: Dextrose 5 % and Lactated Ring 1,000 ML 100 ML IVCONT ×2 (10:46→21:03)
[2025-08-10] MEDS: Lactated Ringers 1,000 ML 100 ML IVCONT (11:00)
--- NOTE | 2025-08-10 15:28 | MHC.CM.PN ---
Addendum entered by Clara Charlton 08/10/25 15:57: PT REPORTS HE LIVES WITH HIS [facility]ANCE AND IS INDEPENDENT WITH CARE HE HAS NO DME AND NO SERVICES DECLINES A HCP PT SAYS RONALD DAVID IS NO LONGER HIS PCP, HE WILL GET THE INFO FOR [facility] NEW ONE. DCP: HOME VIA PRIVATE TRANSPORT Original Note: CM ATTEMPTED TO MEET WITH PT WHO WAS SLEEPING AND DID NOT WAKE TO MULTIPLE ATTEMPTS CM TO REVISIT
--- NOTE | 2025-08-10 17:23 | HE.PHANOTE ---
METHADONE CONFIRMATION FORM PATIENT TAKES 10 MG FROM [facility]. LAST DOSE 08/08 @ 531PM
[2025-08-10] MEDS: methADONE HCl 20 MG/2 ML ORAL.CONC 10 MG PO (18:39)
[2025-08-10] MEDS: Nicotine 21 MG PATCH.TD24 TRANSDERMA (21:01)
[2025-08-10] MEDS: 0.9 % Sodium Chloride Flush 3 ML SYRINGE IVFLUSH (21:06)
[2025-08-11] VITALS (8 sets, daily range): BP systolic 114–133; BP diastolic 64–79; PULSE 69–83; RESP 16–18; TEMP 36.6–37.1; O2SAT 94–99
--- NOTE | 2025-08-11 | EEG_ITS ---
Room: 1st floor lab Reason For EEG: Seizure Medications: tylenol, calcium carbonbate, clonidine, cyclobenzaprine, divaloproex sodium, enoxaparin, gabapentin, thiamine, melatonin, methadone trazodone, phenobarbital, oxycodone, methocarbamol History: H/O seizures, opioid use on methadone, h/o hernia repair- 08/11/25 pt had an event of seizure like activity - hitting his head left side on a side walk- pt has a laceration and bruise on the left side face/eye region, shoulder and back- pt does not recall details of events - pt was on seizures meds in past but has not been compliant Clinical Observation: No clinical changes noted during study Paving Inspector Comments Photic stimulation: Completed Hyperventilation: performed - fair effort Behavioral state: cooperative but restless State of consciousness: awake Skull defect: no Sedation: no Handedness: Right Duration of study:31mins 12 secs Description: This is a 16 channel EEG with an EKG lead. Patient is reported awake during the tracing. Background EEG rhythm is low amplitude fast with no obvious asymmetry or paroxysmal tendency. Photic stimulation does not produce any significant abnormality. Hyperventilation is unremarkable. Cardiac lead does not reveal any significant abnormality. No sharp wave spikes or paroxysmal tendency noted. Impression: Unremarkable EEG. MTDD
[2025-08-11] MEDS: oxyCODONE HCl Immed Release 5 MG TABLET PO ×2 (03:33→11:13)
[2025-08-11] MEDS: Dextrose 5 % and Lactated Ring 1,000 ML 100 ML IVCONT ×2 (06:17→16:45)
[2025-08-11 06:53] LABS: MANUAL DIFF FLAG NO
[2025-08-11] MEDS: Lactated Ringers 1,000 ML 100 ML IVCONT (07:00)
[2025-08-11 07:03] LABS: Hematocrit 41.4 % (42.0-52.0); Hemoglobin 14.0 g/dl (14.0-18.0); Imm Gran Abs Auto 0.03 X10*3/uL (0.00-0.03); Imm Gran Pct Auto 0.4 % (0.0-0.4); Lymphocytes Absolute Auto 2.0 X10*3/uL (1.2-4.9); Mean Corpuscular HGB Conc 33.8 g/dl (31.0-36.0); Mean Corpuscular Hemoglobin 33.2 pg (27.0-33.0); Mean Corpuscular Volume 98.1 fL (80.0-98.0); NRBC Abs Auto 0.000 X10*3/uL (0.0-0.012); NRBC Pct Auto 0.0 /100WBC (0.0-0.2); Platelet Count 126 X10*3/uL (160-400); Red Blood Count 4.22 X10*6/uL (4.60-5.80); White Blood Count 8.0 X10*3/uL (4.8-10.8)
[2025-08-11 07:23] LABS: Alanine Aminotransferase 33 U/L (0-40); Albumin Level 4.0 g/dL (3.5-5.0); Alkaline Phosphatase 61 U/L (39-117); Anion Gap 11 (12-20); Aspartate Amino Transferase 33 U/L (5-37); Blood Urea Nitrogen 7 mg/dL (9-16); Calcium 8.7 mg/dL (8.4-10.2); Carbon Dioxide 29 mmol/L (22-29); Chloride 104 mmol/L (96-108); Creatinine Clr Calc Pharmacy 253.4; Estimated Glomerular Filt Rate > 60; Potassium 4.0 mmol/L (3.3-5.1); Sodium 140 mmol/L (135-145); Total Protein 6.7 g/dL (6.5-8.0)
--- NOTE | 2025-08-11 07:34 | HO.PM.IMPN ---
Subjective Subjective Date of Service: 08/11/25 Interval History: Neurology consulted -initiated on levetiracetam 750 mg p.o. b.i.d. EEG ordered Fiancee at the bedside Strong nicotine smell Physical Exam Exam: Exam: General: AOx3, has multiple bruises in various healing stages on his left upper face Resp: CTA bilaterally CVS: S1, S2, RRR GI: +BS, NT, no distention Left arm in sling s/p fall Vital Signs: Vital Signs: Last Vital Signs Temp 98.7 F 08/11/25 03:19 Pulse 74 08/11/25 04:33 Resp 16 08/11/25 04:33 BP 130/79 08/11/25 03:19 Pulse Ox 96 08/11/25 03:19 O2 Del Method Room Air 08/11/25 03:19 BMI result Body Mass Index 31.1 Objective Data Active Medications Acetaminophen (Acetaminophen 325 Mg Tablet) 650 mg PO Q6H [facility] Last Admin: 08/11/25 03:32 Dose: 650 mg Documented By: HOWARD Calcium Carbonate (Calcium Carbonate 750 Mg Tab.Chew) 750 mg PO Q4H PRN PRN Reason: Heartburn Clonidine HCl (Clonidine Hcl 0.1 Mg Tablet) 0.1 mg PO TID PRN; Protocol PRN Reason: RLS Cyclobenzaprine HCl (Cyclobenzaprine Hcl 10 Mg Tablet) 10 mg PO TID PRN PRN Reason: muscle spasms Last Admin: 08/09/25 20:26 Dose: 10 mg Documented By: DIANA Cyclobenzaprine HCl (Cyclobenzaprine Hcl 5 Mg Tablet) 5 mg PO TID [facility] Last Admin: 08/10/25 21:05 Dose: 5 mg Documented By: HOWARD Divalproex Sodium (Divalproex Sodium 500 Mg Tablet.) 500 mg PO Q12H [facility] Last Admin: 08/11/25 06:13 Dose: 500 mg Documented By: HOWARD Enoxaparin Sodium (Enoxaparin Sodium 40 Mg/0.4 Ml Syringe) 40 mg SUBCUT Q24H [facility] Last Admin: 08/10/25 17:03 Dose: Not Given Documented By: ABIEL Non-Admin Reason: Patient Refused Gabapentin (Gabapentin 300 Mg Capsule) 300 mg PO BID [facility] Last Admin: 08/10/25 21:05 Dose: 300 mg Documented By: HOWARD Guaifenesin (Guaifenesin 200 Mg/10 Ml 10 Ml Liquid) 30 ml PO TID PRN PRN Reason: Cough Lactated Ringer's (Lr) 1,000 mls @ 100 mls/hr IVCONT .Q10H [facility] Last Admin: 08/10/25 22:03 Dose: Not Given Documented By: HOWARD Non-Admin Reason: D5/LR infusing Thiamine HCl 100 mg/ Sodium (Chloride) 101 mls @ 202 mls/hr IV DAILY [facility] Last Infusion: 08/10/25 10:55 Dose: Infused Documented By: ABIEL Dextrose/Lactated Ringer's (D5lr) 1,000 mls @ 100 mls/hr IVCONT .Q10H [facility] Last Admin: 08/11/25 06:17 Dose: 100 mls/hr Documented By: HOWARD Lidocaine (Lidocaine 4 % Patch Adh..Patch) 2 patch TRANSDERMA DAILY [facility]; Protocol Magnesium Hydroxide (Milk Of Magnesia 30 Ml Oral.Susp) 30 ml PO DAILY PRN PRN Reason: Constipation Melatonin (Melatonin 3 Mg Tablet) 6 mg PO BEDTIME PRN PRN Reason: Insomnia Methadone HCl (Methadone Hcl 20 Mg/2 Ml Oral.Conc) 10 mg PO DAILY [facility] Last Admin: 08/10/25 18:39 Dose: 10 mg Documented By: ABIEL Co-signed By: BLAS Methocarbamol (Methocarbamol 750 Mg Tablet) 750 mg PO TID PRN PRN Reason: muscle relaxation Last Admin: 08/10/25 15:39 Dose: 750 mg Documented By: ABIEL Nicotine (Nicotine 21 Mg Patch.Td24) 21 mg TRANSDERMA DAILY [facility] Last Admin: 08/10/25 21:01 Dose: 21 mg Documented By: HOWARD Comments: Okay to apply now per Dr. Cifuentes via [employer] as pt requested now Nicotine Polacrilex (Nicotine Polacrilex Lozenge 2 Mg Lozenge) 2 mg BUCCAL Q1H PRN PRN Reason: Nicotine Cravings Oxycodone HCl (Oxycodone Hcl Immed Release 5 Mg Tablet) 5 mg PO Q6H PRN PRN Reason: Pain, Moderate(Pain Scale 4-6) Last Admin: 08/11/25 03:33 Dose: 5 mg Documented By: HOWARD Pharmacy Consult (Consult Rx Etoh Phenob Im/Po) 1 each MISCELLANE ONCE PRN; Protocol PRN Reason: Consult order Phenobarbital (Phenobarbital 30 Mg Tablet) 60 mg PO BID [facility] Stop: 08/11/25 09:01 Last Admin: 08/10/25 21:05 Dose: 60 mg Documented By: HOWARD Phenobarbital (Phenobarbital 30 Mg Tablet) 30 mg PO BID [facility] Stop: 08/13/25 09:01 Phenobarbital (Phenobarbital 30 Mg Tablet) 30 mg PO DAILY [facility] Stop: 08/14/25 09:01 Sodium Chloride (0.9 % Sodium Chloride Flush 3 Ml Syringe) 3 ml IVFLUSH QSHIFT [facility] Last Admin: 08/10/25 21:06 Dose: 3 ml Documented By: HOWARD Trazodone HCl (Trazodone Hcl 50 Mg Tablet) 50 mg PO BEDTIME PRN PRN Reason: Insomnia Labs 08/11/25 06:32 08/11/25 06:32 Labs: Laboratory Results - last 24 hr 08/10/25 08/11/25 08:00 06:32 MCV 95.2 98.1 H MCH 32.4 33.2 H MCHC 34.1 33.8 RDW 13.3 13.5 Plt Count 139 L 126 L MPV 9.9 9.7 Immature Gran % (Auto) 0.4 Neut % (Auto) 61.3 Lymph % (Auto) 25.2 Giles % (Auto) 8.6 Eos % (Auto) 3.9 Baso % (Auto) 0.6 Lymph # (Auto) 2.0 Giles # (Auto) 0.7 Eos # (Auto) 0.3 Baso # (Auto) 0.1 Abs Immat Gran (auto) 0.03 Absolute Neuts (auto) 4.9 Absolute Nucleated RBC 0.000 0.000 Nucleated RBC % (auto) 0.0 0.0 Anion Gap 13 11 L Estim Creat Clear Calc 182.1 253.4 Estimated GFR > 60 > 60 Random Glucose 119 H 106 Calcium 9.2 D 8.7 Magnesium 1.8 Total Bilirubin 0.8 AST 33 ALT 33 Alkaline Phosphatase 61 Total Protein 6.7 Albumin 4.0 TSH 0.52 Assessment and Plan (1) Seizures concurrent with and due to substance withdrawal: Status: Acute Plan Patient with PMH notable for alcohol use disorder, EDWIN on methadone presented to the ED with what is likely presumed to be alcohol withdrawal seizures as he was returning from his methadone clinic. He is being admitted for monitoring and management of alcohol withdrawal seizures Alcohol use disorder, presenting with likely alcohol withdrawal seizures Continue phenobarb for alcohol withdrawal Seizure precautions , acute intracranial pathology ruled out Neurology consulted, initiated on Depakote 750 mg p.o. b.i.d. per neurology Substance use disorder Continue methadone Nicotine replacement Addiction med consult Aggressive electrolyte repletion DVT prophylaxis with Lovenox This note is constructed using voice recognition software. While every effort has been made to ensure accuracy, leverman errors may have been included. Quality Stroke Does the patient have a stroke diagnosis?: No VTE Prior VTE?: No VTE Risk Level:: Medical - moderate - high VTE Device Contraindication: Treatment Not Indicated VTE Drug Contraindication: N/A - Med Ordered
[2025-08-11] MEDS: Thiamine HCL 100 MG in 0.9 % Sodium Chloride 100 ML 202 MG IV (08:14)
[2025-08-11] MEDS: methADONE HCl 20 MG/2 ML ORAL.CONC 10 MG PO (08:17)
--- NOTE | 2025-08-11 09:01 | P.CNNE_ITS ---
History of Present Illness Data of Consult Service Date: 08/11/25 Primary Care Provider: MD ANGELITA Middleton Reason for consult: Seizure disorder 40 years old man with excessive alcohol drinking came to hospital for seizures. Apparently he had couple of convulsions any sustained injury around left eye with a laceration and black eye. He said that he has been having seizures but was not seeing a neurologist and was prescribed a medicine by his primary care but he was not taking it. There was no recent new medical illness. Review of Systems 2 Review of Systems: No recent cold or flu-like illness PMFSH Family History Family History (Updated 09/15/21 @ 09:40 by VIOLET Elena) Mother Lung cancer Surgical History Surgical History (Updated 09/15/21 @ 09:39 by VIOLET Elena) History of right inguinal hernia repair Social History Social History Household Members: Significant Other Housing: Other Housing Other:: mobile home Do you presently have visiting nurse or other home services: No Patient Tobacco Use Status: Current everyday Tobacco user Tobacco use type: Cigarette service: No Meds Allergies Allergy/AdvReac Type Severity Reaction Status Date / Time No Known Allergies Allergy Verified 08/09/25 06:23 Active Medications: Current Medications Acetaminophen (Acetaminophen 325 Mg Tablet) 650 mg PO Q6H [facility] Last Admin: 08/11/25 03:32 Dose: 650 mg Calcium Carbonate (Calcium Carbonate 750 Mg Tab.Chew) 750 mg PO Q4H PRN PRN Reason: Heartburn Clonidine HCl (Clonidine Hcl 0.1 Mg Tablet) 0.1 mg PO TID PRN; Protocol PRN Reason: RLS Cyclobenzaprine HCl (Cyclobenzaprine Hcl 10 Mg Tablet) 10 mg PO TID PRN PRN Reason: muscle spasms Last Admin: 08/09/25 20:26 Dose: 10 mg Cyclobenzaprine HCl (Cyclobenzaprine Hcl 5 Mg Tablet) 5 mg PO TID [facility] Last Admin: 08/11/25 08:13 Dose: 5 mg Divalproex Sodium (Divalproex Sodium 500 Mg Tablet.) 500 mg PO Q12H [facility] Last Admin: 08/11/25 06:13 Dose: 500 mg Enoxaparin Sodium (Enoxaparin Sodium 40 Mg/0.4 Ml Syringe) 40 mg SUBCUT Q24H [facility] Last Admin: 08/10/25 17:03 Dose: Not Given Gabapentin (Gabapentin 300 Mg Capsule) 300 mg PO BID [facility] Last Admin: 08/11/25 08:14 Dose: 300 mg Guaifenesin (Guaifenesin 200 Mg/10 Ml 10 Ml Liquid) 30 ml PO TID PRN PRN Reason: Cough Lactated Ringer's (Lr) 1,000 mls @ 100 mls/hr IVCONT .Q10H [facility] Last Admin: 08/10/25 22:03 Dose: Not Given Thiamine HCl 100 mg/ Sodium (Chloride) 101 mls @ 202 mls/hr IV DAILY [facility] Last Admin: 08/11/25 08:14 Dose: 202 mls/hr Dextrose/Lactated Ringer's (D5lr) 1,000 mls @ 100 mls/hr IVCONT .Q10H [facility] Last Admin: 08/11/25 06:17 Dose: 100 mls/hr Lidocaine (Lidocaine 4 % Patch Adh..Patch) 2 patch TRANSDERMA DAILY [facility]; Protocol Magnesium Hydroxide (Milk Of Magnesia 30 Ml Oral.Susp) 30 ml PO DAILY PRN PRN Reason: Constipation Melatonin (Melatonin 3 Mg Tablet) 6 mg PO BEDTIME PRN PRN Reason: Insomnia Methadone HCl (Methadone Hcl 20 Mg/2 Ml Oral.Conc) 10 mg PO DAILY [facility] Last Admin: 08/11/25 08:17 Dose: 10 mg Methocarbamol (Methocarbamol 750 Mg Tablet) 750 mg PO TID PRN PRN Reason: muscle relaxation Last Admin: 08/10/25 15:39 Dose: 750 mg Nicotine (Nicotine 21 Mg Patch.Td24) 21 mg TRANSDERMA DAILY [facility] Last Admin: 08/10/25 21:01 Dose: 21 mg Nicotine Polacrilex (Nicotine Polacrilex Lozenge 2 Mg Lozenge) 2 mg BUCCAL Q1H PRN PRN Reason: Nicotine Cravings Oxycodone HCl (Oxycodone Hcl Immed Release 5 Mg Tablet) 5 mg PO Q6H PRN PRN Reason: Pain, Moderate(Pain Scale 4-6) Last Admin: 08/11/25 03:33 Dose: 5 mg Pharmacy Consult (Consult Rx Etoh Phenob Im/Po) 1 each MISCELLANE ONCE PRN; Protocol PRN Reason: Consult order Phenobarbital (Phenobarbital 30 Mg Tablet) 60 mg PO BID [facility] Stop: 08/11/25 09:01 Last Admin: 08/11/25 08:17 Dose: 60 mg Phenobarbital (Phenobarbital 30 Mg Tablet) 30 mg PO BID [facility] Stop: 08/13/25 09:01 Phenobarbital (Phenobarbital 30 Mg Tablet) 30 mg PO DAILY [facility] Stop: 08/14/25 09:01 Sodium Chloride (0.9 % Sodium Chloride Flush 3 Ml Syringe) 3 ml IVFLUSH QSHIFT [facility] Last Admin: 08/11/25 08:16 Dose: Not Given Trazodone HCl (Trazodone Hcl 50 Mg Tablet) 50 mg PO BEDTIME PRN PRN Reason: Insomnia Home Medications ?Medication ?Instructions ?Recorded ?Confirmed ?Last Taken ?Type acamprosate 333 mg tablet,delayed 333 mg PO TID 08/09/25 Unknown History release clonidine HCl 0.1 mg tablet 0.1 mg PO TID PRN RLS 07/2808/09/25 Unknown History cyclobenzaprine 10 mg tablet 10 mg PO TID PRN muscle s pasms 08/09/25 08/09/25 Unknown History divalproex 500 mg tablet,delayed 500 mg PO Q12H 08/09/25 Unknown History release gabapentin 300 mg capsule 300 mg PO BID 08/09/2508/09 Unknown History methocarbamol 750 mg tablet 750 mg PO TID PRN muscle r elaxation 08/09/25 08/09/25 Unknown History trazodone 50 mg tablet 50 - 100 mg PO BEDTIME PRN i nsomnia 08/09/25 08/09/25 Unknown History methadone 10 mg/mL oral concentrate 10 mg PO DAILY 08/10/25 08/08/25 History Physical Exam 2 Vital Signs: Vital Signs: Last Vital Signs Temp 97.8 F 08/11/25 07:46 Pulse 69 08/11/25 07:46 Resp 18 08/11/25 07:46 BP 115/67 08/11/25 07:46 Pulse Ox 99 08/11/25 07:46 O2 Del Method Room Air 08/11/25 07:46 BMI result Body Mass Index 31.1 Neuro: Other: He is alert and awake with normal spontaneity of speech fluency comprehension and affect. Significant ecchymosis around left eye and scar is noted. Face otherwise is symmetrical. Extraocular muscles were intact. Visual gomez are full. There was no focal arm or leg weakness. Plantars are flexor. Deep tendon reflexes are trace to absent. Results Labs 08/11/25 06:32 08/11/25 06:32 Labs: Short CBC 08/11/25 Range/Units 06:32 WBC 8.0 (4.8-10.8) X10*3/uL Hgb 14.0 (14.0-18.0) g/dl Hct 41.4 L (42.0-52.0) % Plt Count 126 L (160-400) X10*3/uL BMP 08/11/25 06:32 Sodium 140 Potassium 4.0 Chloride 104 Carbon Dioxide 29 BUN 7 L Creatinine 0.46 L Calcium 8.7 Liver Function 08/11/25 Range/Units 06:32 Total Bilirubin 0.8 (0.0-1.0) mg/dL AST 33 (5-37) U/L ALT 33 (0-40) U/L Alkaline Phosphatase 61 (39-117) U/L Albumin 4.0 (3.5-5.0) g/dL Head CT revealed mild cerebellar atrophy. Assessment and Plan (1) Seizure: Status: Acute 40 years old man with alcoholism and generalized seizure disorder. He needed to address both issues. As far as seizures are concerned, I would put him on levetiracetam 750 mg twice a day. An EEG is also recommended. I talked to him and educated him about risk of having seizures especially when he continues to drink alcohol. He should not be driving or involved in a physical activity that could put his life in danger. Procedures Date of Service Date of Service: 08/11/25
--- NOTE | 2025-08-11 10:42 | MHC.CM.PN ---
Per ROUNDS discussion, Patient is not yet medically cleared for dc (see 08/11/2025 Neurology PN); home is the goal and CM will continue to follow.
[2025-08-11] MEDS: Nicotine 21 MG PATCH.TD24 TRANSDERMA (11:07)
[2025-08-11] MEDS: Lidocaine 4 % Patch ADH..PATCH 2 PATCH TRANSDERMA (11:09)
[2025-08-11] MEDS: guaiFENesin 200 MG/10 ML 10 ML LIQUID 30 ML PO (15:45)
[2025-08-12 04:00] VITALS: BP 115/56; PULSE 74; RESP 18; TEMP 36.8; O2SAT 97
[2025-08-12 07:04] VITALS: BP 124/61; PULSE 87; RESP 17; TEMP 36.9; O2SAT 97
--- NOTE | 2025-08-12 07:18 | P.PNIM_ITS ---
Subjective Subjective Date of Service: 08/12/25 Interval History: Patient remained seizure-free since admission Patient underwent EEG which was thus far unremarkable Patient had pass anxious about being discharged-reinforce the to complete therapy Review of Systems Review of Systems: Yes all other systems are reviewed and are negative Physical Exam 2 Exam: Exam: General: AOx3, has multiple bruises in various healing stages on his left upper face Resp: CTA bilaterally CVS: S1, S2, RRR GI: +BS, NT, no distention Psych: Appears anxious Vital Signs: Vital Signs: Last Vital Signs Temp 98.7 F 08/11/25 03:19 Pulse 74 08/11/25 04:33 Resp 16 08/11/25 04:33 BP 130/79 08/11/25 03:19 Pulse Ox 96 08/11/25 03:19 O2 Del Method Room Air 08/11/25 03:19 BMI result Body Mass Index 31.1 Objective Data Active Medications Acetaminophen (Acetaminophen 325 Mg Tablet) 650 mg PO Q6H [facility] Last Admin: 08/12/25 04:34 Dose: 650 mg Documented By: NOÉ Calcium Carbonate (Calcium Carbonate 750 Mg Tab.Chew) 750 mg PO Q4H PRN PRN Reason: Heartburn Clonidine HCl (Clonidine Hcl 0.1 Mg Tablet) 0.1 mg PO TID PRN; Protocol PRN Reason: RLS Cyclobenzaprine HCl (Cyclobenzaprine Hcl 10 Mg Tablet) 10 mg PO TID PRN PRN Reason: muscle spasms Last Admin: 08/09/25 20:26 Dose: 10 mg Documented By: DIANA Cyclobenzaprine HCl (Cyclobenzaprine Hcl 5 Mg Tablet) 5 mg PO TID [facility] Last Admin: 08/11/25 20:08 Dose: 5 mg Documented By: NOÉ Divalproex Sodium (Divalproex Sodium 250 Mg Tablet.) 750 mg PO Q12H [facility] Last Admin: 08/11/25 20:09 Dose: 750 mg Documented By: NOÉ Enoxaparin Sodium (Enoxaparin Sodium 40 Mg/0.4 Ml Syringe) 40 mg SUBCUT Q24H [facility] Last Admin: 08/11/25 15:45 Dose: 40 mg Documented By: ABIEL Gabapentin (Gabapentin 300 Mg Capsule) 300 mg PO BID [facility] Last Admin: 08/11/25 20:08 Dose: 300 mg Documented By: NOÉ Guaifenesin (Guaifenesin 200 Mg/10 Ml 10 Ml Liquid) 30 ml PO TID PRN PRN Reason: Cough Last Admin: 08/11/25 15:45 Dose: 30 ml Documented By: ABIEL Thiamine HCl 100 mg/ Sodium (Chloride) 101 mls @ 202 mls/hr IV DAILY [facility] Last Infusion: 08/11/25 08:45 Dose: Infused Documented By: ABIEL Lidocaine (Lidocaine 4 % Patch Adh..Patch) 2 patch TRANSDERMA DAILY [facility]; Protocol Last Admin: 08/11/25 11:09 Dose: 2 patch Documented By: ABIEL Comments: left flank area Magnesium Hydroxide (Milk Of Magnesia 30 Ml Oral.Susp) 30 ml PO DAILY PRN PRN Reason: Constipation Melatonin (Melatonin 3 Mg Tablet) 6 mg PO BEDTIME PRN PRN Reason: Insomnia Methadone HCl (Methadone Hcl 20 Mg/2 Ml Oral.Conc) 10 mg PO DAILY [facility] Last Admin: 08/11/25 08:17 Dose: 10 mg Documented By: ABIEL Co-signed By: EDNA Methocarbamol (Methocarbamol 750 Mg Tablet) 750 mg PO TID PRN PRN Reason: muscle relaxation Last Admin: 08/10/25 15:39 Dose: 750 mg Documented By: ABIEL Nicotine (Nicotine 21 Mg Patch.Td24) 21 mg TRANSDERMA DAILY [facility] Last Admin: 08/11/25 11:07 Dose: 21 mg Documented By: ABIEL Nicotine Polacrilex (Nicotine Polacrilex Lozenge 2 Mg Lozenge) 2 mg BUCCAL Q1H PRN PRN Reason: Nicotine Cravings Oxycodone HCl (Oxycodone Hcl Immed Release 5 Mg Tablet) 5 mg PO Q6H PRN PRN Reason: Pain, Moderate(Pain Scale 4-6) Last Admin: 08/11/25 11:13 Dose: 5 mg Documented By: ABIEL Pharmacy Consult (Consult Rx Etoh Phenob Im/Po) 1 each MISCELLANE ONCE PRN; Protocol PRN Reason: Consult order Phenobarbital (Phenobarbital 30 Mg Tablet) 30 mg PO BID [facility] Stop: 08/13/25 09:01 Last Admin: 08/11/25 20:08 Dose: 30 mg Documented By: NOÉ Phenobarbital (Phenobarbital 30 Mg Tablet) 30 mg PO DAILY [facility] Stop: 08/14/25 09:01 Sodium Chloride (0.9 % Sodium Chloride Flush 3 Ml Syringe) 3 ml IVFLUSH QSHIFT [facility] Last Admin: 08/11/25 20:13 Dose: Not Given Documented By: NOÉ Non-Admin Reason: IV Running Trazodone HCl (Trazodone Hcl 50 Mg Tablet) 50 mg PO BEDTIME PRN PRN Reason: Insomnia Last Admin: 08/11/25 22:11 Dose: 50 mg Documented By: NOÉ Labs 08/12/25 06:44 08/12/25 06:44 Labs: Laboratory Results - last 24 hr 08/11/25 06:32 Anion Gap 11 L Estim Creat Clear Calc 253.4 Estimated GFR > 60 Random Glucose 106 Calcium 8.7 Total Bilirubin 0.8 AST 33 ALT 33 Alkaline Phosphatase 61 Total Protein 6.7 Albumin 4.0 Assessment and Plan (1) Seizures concurrent with and due to substance withdrawal: Status: Acute Plan Patient with PMH notable for alcohol use disorder, EDWIN on methadone presented to the ED with what is likely presumed to be alcohol withdrawal seizures as he was returning from his methadone clinic. He is being admitted for monitoring and management of alcohol withdrawal seizures Alcohol use disorder, presenting with likely alcohol withdrawal seizures Continue phenobarb for alcohol withdrawal Seizure precautions , acute intracranial pathology ruled out Neurology consulted POA, initiated on Depakote 750 mg p.o. b.i.d. per neurology Patient underwent EEG-awaiting official read Substance use disorder Continue methadone Nicotine replacement Addiction med consult Aggressive electrolyte repletion DVT prophylaxis with Lovenox This note is constructed using voice recognition software. While every effort has been made to ensure accuracy, import and export clerk errors may have been included. Quality Stroke Does the patient have a stroke diagnosis?: No VTE Prior VTE?: No VTE Risk Level:: Medical - moderate - high VTE Device Contraindication: Treatment Not Indicated VTE Drug Contraindication: N/A - Med Ordered
[2025-08-12 07:21] LABS: MANUAL DIFF FLAG NO
[2025-08-12 07:36] LABS: Hematocrit 41.7 % (42.0-52.0); Hemoglobin 14.1 g/dl (14.0-18.0); Imm Gran Abs Auto 0.03 X10*3/uL (0.00-0.03); Imm Gran Pct Auto 0.4 % (0.0-0.4); Lymphocytes Absolute Auto 1.8 X10*3/uL (1.2-4.9); Mean Corpuscular HGB Conc 33.8 g/dl (31.0-36.0); Mean Corpuscular Hemoglobin 32.8 pg (27.0-33.0); Mean Corpuscular Volume 97.0 fL (80.0-98.0); NRBC Abs Auto 0.000 X10*3/uL (0.0-0.012); NRBC Pct Auto 0.0 /100WBC (0.0-0.2); Platelet Count 143 X10*3/uL (160-400); Red Blood Count 4.30 X10*6/uL (4.60-5.80); White Blood Count 8.3 X10*3/uL (4.8-10.8)
[2025-08-12 07:47] LABS: Alanine Aminotransferase 29 U/L (0-40); Albumin Level 4.0 g/dL (3.5-5.0); Alkaline Phosphatase 61 U/L (39-117); Anion Gap 12 (12-20); Aspartate Amino Transferase 32 U/L (5-37); Blood Urea Nitrogen 6 mg/dL (9-16); Calcium 9.0 mg/dL (8.4-10.2); Carbon Dioxide 24 mmol/L (22-29); Chloride 106 mmol/L (96-108); Creatinine Clr Calc Pharmacy 237.9; Estimated Glomerular Filt Rate > 60; Potassium 3.9 mmol/L (3.3-5.1); Sodium 138 mmol/L (135-145); Total Protein 6.9 g/dL (6.5-8.0)
[2025-08-12] MEDS: Nicotine 21 MG PATCH.TD24 TRANSDERMA (09:50)
[2025-08-12] MEDS: Lidocaine 4 % Patch ADH..PATCH 2 PATCH TRANSDERMA (09:52)
[2025-08-12] MEDS: methADONE HCl 20 MG/2 ML ORAL.CONC 10 MG PO (09:53)
[2025-08-12] MEDS: Thiamine HCL 100 MG in 0.9 % Sodium Chloride 100 ML 202 MG IV (09:58)
[2025-08-12 11:19] VITALS: BP 130/70; PULSE 85; RESP 17; TEMP 36.6; O2SAT 97
[2025-08-12] MEDS: 0.9 % Sodium Chloride Flush 3 ML SYRINGE IVFLUSH ×2 (12:00→18:40)
[2025-08-12 15:14] VITALS: BP 137/86; PULSE 88; RESP 17; TEMP 36.4; O2SAT 99
[2025-08-12 19:11] VITALS: BP 128/69; PULSE 77; RESP 18; TEMP 37; O2SAT 97
[2025-08-12] MEDS: oxyCODONE HCl Immed Release 5 MG TABLET PO (21:08)
[2025-08-12 23:15] VITALS: BP 125/59; PULSE 71; RESP 18; TEMP 36.7; O2SAT 95
[2025-08-13 03:17] VITALS: BP 131/62; PULSE 92; RESP 18; TEMP 36.6; O2SAT 96
[2025-08-13 07:11] VITALS: BP 117/66; PULSE 87; RESP 18; TEMP 36.4; O2SAT 98
--- NOTE | 2025-08-13 07:57 | PM.DS ---
DS: Providers Provider Date of Service: 08/13/25 Date of admission: 08/09/25 12:41 Date of discharge: 08/13/25 Primary care physician: Evie Woodson MD Consults: 08/09/25 14:45 Consult to Neurology Routine Consulting Provider: [facility] Reason for consultation: seizure, breakthrough DS: Diagnosis Discharge Diagnosis (1) Seizures concurrent with and due to substance withdrawal: Status: Acute DS: Summary Hospital Course Hospital Course: Alcohol use disorder, presenting with likely alcohol withdrawal seizures Patient to follow-up with the addiction med for maintaining alcohol withdrawal and substance use Patient with PMH notable for alcohol use disorder, EDWIN on methadone presented to the ED with what is likely presumed to be alcohol withdrawal seizures as he was returning from his methadone clinic. He was admitted for monitoring and management of alcohol withdrawal seizures with phenobarb protocol for 4 days with good effect. Addiction Medicine consulted. Neurology was consulted, Patient underwent EEG without any notable changes, however given seizures, his Depakote doses have been increased to 750 b.i.d.) up from 500 mg p.o. b.i.d. Need to follow-up with PCP Left eyelid sutures removal-which was sustained after traumatic fall from alcohol withdrawal seizures-CDI Sutures were placed in the ED, please follow-up with PCP for removal Substance use disorder -addiction med consulted , Continue methadone Smoking dependence- Nicotine replacement ordered, smoking cessation advised DVT prophylaxis with Lovenox This note is constructed using voice recognition software. While every effort has been made to ensure accuracy, manager entry errors may have been included. Time spent discussing smoking cessation with patient: more than 10 minutes Time Attestation Discharge Coordination Time (in mins): 35 Quality: Safe Use of Opioids Does Pt have an Active Cancer Diagnosis on the Problem List?: No Quality: Stroke Does the patient have a stroke diagnosis?: No Physical Exam Vital Signs: Vital Signs: Last Vital Signs Temp 97.6 F 08/13/25 07:11 Pulse 87 08/13/25 07:11 Resp 18 08/13/25 07:11 BP 117/66 08/13/25 07:11 Pulse Ox 98 08/13/25 07:11 O2 Del Method Room Air 08/13/25 07:11 BMI result Body Mass Index 31.1 Discharge Plan Discharge Anticipated Discharge Date/Time: 08/13/25 08:06 Patient Disposition: Home, Self-Care Discharge Diagnosis: Alcohol use disorder, presenting with likely alcohol withdrawal seizures Referrals: Evie Woodson MD [Primary Care Provider, Internal Medicine] - 1 Week Discharge Medications: New nicotine 21 mg/24 hr Patch 24 Hour 21 mg transdermal DAILY 14 Days Qty: 30 0RF nicotine (polacrilex) 2 mg Lozenge 2 mg buccal Q1H PRN (Reason: Nicotine Cravings) 20 Days Qty: 30 0RF divalproex 250 mg Tablet,Delayed Release (Dr/Ec) 750 mg PO Q12H 30 Days Qty: 180 3RF Continued cyclobenzaprine 10 mg tablet 10 mg PO TID PRN (Reason: muscle spasms) clonidine HCl 0.1 mg tablet 0.1 mg PO TID PRN (Reason: RLS) trazodone 50 mg tablet 50 - 100 mg PO BEDTIME PRN (Reason: insomnia) methocarbamol 750 mg tablet 750 mg PO TID PRN (Reason: muscle relaxation) gabapentin 300 mg capsule 300 mg PO BID acamprosate 333 mg tablet,delayed release (DR/EC) 333 mg PO TID methadone 10 mg/mL Concentrate 10 mg PO DAILY Discontinued divalproex 500 mg tablet,delayed release (DR/EC) 500 mg PO Q12H Discharge Orders: Discharge Order (Routine); Ordered 08/13/25 Ordered By: Cherelle Walls Diet: Advance to usual diet Activity on Discharge: As tolerated Stand Alone Forms: Patient Portal Discharge page Print Language: Rwand[place] Care Plan Goals: Maintaining sobriety Getting on top of his health Continuing to refrain from alcohol Follow-up with PCP Follow-up with Neurology To remain seizure-free Follow-up with PCP for suture [id number] days Health Concerns: Seizures See above Plan of Treatment: Started acamprosate for alcohol cravings Nicotine replacement ordered to refrain from smoking/to maintain smoking cessation His Depakote medication dose has been increased to 750 b.i.d. (from 500 b.i.d.) For his sutures/left eyelid-please follow-up with PCP Assessment: See above Patient Instructions: Acute Delirium (GEN), Alcohol Withdrawal (DC), Stitches Removal (DC)
[2025-08-13] MEDS: 0.9 % Sodium Chloride Flush 3 ML SYRINGE IVFLUSH (09:10)
[2025-08-13] MEDS: Nicotine 21 MG PATCH.TD24 TRANSDERMA (09:11)
[2025-08-13] MEDS: Lidocaine 4 % Patch ADH..PATCH 2 PATCH TRANSDERMA (09:12)
[2025-08-13] MEDS: methADONE HCl 20 MG/2 ML ORAL.CONC 10 MG PO (09:13)
[2025-08-13] MEDS: Thiamine HCL 100 MG in 0.9 % Sodium Chloride 100 ML 202 MG IV (09:14)
[2025-08-13 11:18] VITALS: BP 117/71; PULSE 88; RESP 18; TEMP 36.8; O2SAT 94
--- NOTE | 2025-08-13 14:09 | MHC.CM.PN ---
Patient has been medically cleared for dc to home today, self care.
== END 2025-08-13 15:28 | disposition home or self-care (01) | DRG 773 ==
LOC: HO.ED 12:36 → HO.EDOVER 13:10 → HO.IMC 08-10 07:00
PROVIDERS: Hospitalist; Admitting Provider Nurse Practitioner Acute Care; Emergency Provider Emergency Medicine; PCP Internal Medicine; Visit Provider Student in an Organized Health Care Education/Training Program
DX: F10.239 Alcohol dependence with withdrawal, unspecified (principal); F11.20 Opioid dependence, uncomplicated; R56.9 Unspecified convulsions; G40.909 Epilepsy, unspecified, not intractable, without status epilepticus; E66.811 Obesity, class 1; Z71.3 Dietary counseling and surveillance; Z68.31 Body mass index [BMI] 31.0-31.9, adult; F17.210 Nicotine dependence, cigarettes, uncomplicated; Z71.6 Tobacco abuse counseling; Z91.148 Patient's other noncompliance with medication regimen for other reason; S01.112A Laceration without foreign body of left eyelid and periocular area, initial encounter; W19.XXXA Unspecified fall, initial encounter; Z79.899 Other long term (current) drug therapy
CPT/HCPCS: 36415; 70450; 70486; 71045; 72125; 80048; 80053; 80164; 80307; 81001; 83605; 83735; 84443; 84484; 85025; 85027; 93005; 95816; 99285; J1650; J2003; J2560; J3360; J3411; J7120

== ENCOUNTER → 2025-08-09 06:21 | Outpatient (BNV) | payer MEDICAID, SELFPAY | PROVIDERS: Emergency Provider Emergency Medicine; PCP Internal Medicine; Visit Provider Internal Medicine Cardiovascular Disease | DX: R94.31 Abnormal electrocardiogram [ECG] [EKG] (principal); R56.9 Unspecified convulsions | CPT/HCPCS: 93010 ==

== ENCOUNTER → 2025-08-09 06:23 | Outpatient (BNV) | payer MEDICAID, SELFPAY | PROVIDERS: Emergency Provider Emergency Medicine; PCP Internal Medicine; Visit Provider Radiology Diagnostic Radiology | DX: G40.89 Other seizures (principal); S00.12XA Contusion of left eyelid and periocular area, initial encounter; R51.9 Headache, unspecified | CPT/HCPCS: 70450; 70486; 72125 ==

== ENCOUNTER 2025-08-09 12:41 | Outpatient (BNV) | payer MEDICAID, SELFPAY | END 2025-08-11 07:30 | PROVIDERS: Admitting Provider Nurse Practitioner Acute Care; Emergency Provider Emergency Medicine; PCP Internal Medicine; Visit Provider Psychiatry & Neurology Neurology | DX: R56.9 Unspecified convulsions (principal) | CPT/HCPCS: 95816 ==

== ENCOUNTER 2025-08-09 12:41 | Outpatient (BNV) | payer MEDICAID, SELFPAY | END 2025-08-10 | PROVIDERS: Admitting Provider Nurse Practitioner Acute Care; Emergency Provider Emergency Medicine; PCP Internal Medicine; Visit Provider Radiology Diagnostic Radiology | DX: R06.02 Shortness of breath (principal) | CPT/HCPCS: 71045 ==

== ENCOUNTER → 2025-08-09 12:41 | Outpatient (BNV) | payer MEDICAID, SELFPAY | PROVIDERS: Admitting Provider Nurse Practitioner Acute Care; Emergency Provider Emergency Medicine; PCP Internal Medicine; Visit Provider Psychiatry & Neurology Neurology | DX: R56.9 Unspecified convulsions (principal) | CPT/HCPCS: 99222 ==

== ENCOUNTER → 2025-08-09 12:41 | Outpatient (BNV) | payer MEDICAID, SELFPAY | PROVIDERS: Admitting Provider Nurse Practitioner Acute Care; Emergency Provider Emergency Medicine; PCP Internal Medicine; Visit Provider Nurse Practitioner Acute Care | DX: F10.939 Alcohol use, unspecified with withdrawal, unspecified (principal) | CPT/HCPCS: 99223; 99232; 99239 ==

== ENCOUNTER 2025-08-27 20:26 | Emergency (ER) | payer MEDICAID, SELFPAY ==
[2025-08-27 20:48] VITALS: BP 150/76; PULSE 90; O2SAT 97; BMI 32.3
[2025-08-27 20:58] VITALS: BP 125/71; PULSE 85; RESP 18; TEMP 36.5; O2SAT 92
--- OUTSIDE RECORDS SUMMARY | 2025-08-27 21:05 | XMS_ITS | Clinical Summary ---
Author Organization [facility] Address [address] [place] [id number] Phone Care Team Providers Care Stage Driver Name Role Phone Pcp, Unknown Primary Care [...] this topic Medical Devices Not on file Insurance [facility] [place] [facility] Care Teams Stage Driver Relationship Specialty Start Date End Date Pcp, Unknown PCP - General 02/02/25 Additional Source Comments The information contained in this document represents components of the legal health record. It is not the complete legal health record.[facility]
--- OUTSIDE RECORDS SUMMARY | 2025-08-27 21:05 | XMS_ITS | Encounter Summary ---
Author Organization [facility] Address [address] [place] [address] [place] [phone] Phone Care Team Providers Care Milling Machine Operator Name Role Phone Pcp, Unknown Primary Care Provider Unavailabl e Encounter Details Date Type Department Care Team (Late st Contact Info) Description 02/02/2025 Procedure [facility], Ct Scan - [address] [address] Social History Tobacco Use Types Packs/Day Years [...] 5:51 PM EDT Estevan Plata RN * [place] Suicide Severity Rating Scale (Screener/Recent Self-Report) Question [...] documented as of this encounter Care Teams Milling Machine Operator Relationship Specialty Start Date End Date Pcp, Unknown PCP - General 02/02/25 documented as of this encounter Additional Source Comments The information contained in this document represents components of the legal health record. It is not the complete legal health record.[facility]
[2025-08-27 21:08] LABS: MANUAL DIFF FLAG NO
[2025-08-27 21:10] LABS: Hematocrit 41.1 % (42.0-52.0); Hemoglobin 14.5 g/dl (14.0-18.0); Imm Gran Abs Auto 0.02 X10*3/uL (0.00-0.03); Imm Gran Pct Auto 0.3 % (0.0-0.4); Lymphocytes Absolute Auto 4.0 X10*3/uL (1.2-4.9); Mean Corpuscular HGB Conc 35.3 g/dl (31.0-36.0); Mean Corpuscular Hemoglobin 33.2 pg (27.0-33.0); Mean Corpuscular Volume 94.1 fL (80.0-98.0); NRBC Abs Auto 0.000 X10*3/uL (0.0-0.012); NRBC Pct Auto 0.0 /100WBC (0.0-0.2); Platelet Count 199 X10*3/uL (160-400); Red Blood Count 4.37 X10*6/uL (4.60-5.80); White Blood Count 7.8 X10*3/uL (4.8-10.8)
[2025-08-27 21:24] LABS: Alanine Aminotransferase 25 U/L (0-40); Albumin Level 4.4 g/dL (3.5-5.0); Alkaline Phosphatase 148 U/L (39-117); Anion Gap 14 (12-20); Aspartate Amino Transferase 35 U/L (5-37); Blood Urea Nitrogen 11 mg/dL (9-16); Calcium 9.0 mg/dL (8.4-10.2); Carbon Dioxide 25 mmol/L (22-29); Chloride 111 mmol/L (96-108); Creatinine Clr Calc Pharmacy 232.6; Estimated Glomerular Filt Rate > 60; Potassium 3.4 mmol/L (3.3-5.1); Sodium 147 mmol/L (135-145); Total Protein 7.4 g/dL (6.5-8.0)
--- NOTE | 2025-08-27 22:45 | ED.GENADULT ---
HPI - General Adult General Chief complaint: Psychiatric Symptoms Stated complaint: Si w/ plan Time Seen by Provider: 08/27/25 22:36 Source: patient Mode of arrival: ambulatory Limitations: no limitations History of Present Illness ED Provider: DR. Wyatt HPI narrative: 40-year-old male past medical history significant for alcohol dependence, on methadone, alcohol withdrawal seizure, patient has been drinking all day today in the emergency department patient declined any SI or HI, no visual or auditory hallucination at the moment, patient was brought in under section 12 by the police for endorsing SI statement to his significant other earlier today patient declined the now. Patient prefers to be left alone now and took later when he is awake. Related Data Home Medications ?Medication ?Instructions ?Recorded ?Confirmed acamprosate 333 mg tablet,delayed 333 mg PO TID 08/09/25 08/28/25 release clonidine HCl 0.1 mg tablet 0.1 mg PO TID PRN RLS 08/09/25 08/28/25 cyclobenzaprine 10 mg tablet 10 mg PO TID PRN muscle spasms 08/09/25 08/28/25 gabapentin 300 mg capsule 300 mg PO BID 08/09/25 08/28/25 trazodone 50 mg tablet 50 - 100 mg PO BEDTIME PRN insomnia 08/09/25 08/28/25 methadone 10 mg/mL oral concentrate 10 mg PO DAILY 08/10/25 08/28/25 Previous Rx's ?Medication ?Instructions ?Recorded divalproex 250 mg tablet,delayed 750 mg (3 x 250 mg) PO Q12H 30 08/13/25 release days #180 tabs nicotine (polacrilex) 2 mg buccal 2 mg buccal Q1H PRN Nicotine 08/13/25 lozenge Cravings 20 days #30 ea nicotine 21 mg/24 hr daily 21 mg transdermal DAILY 14 days 08/13/25 transdermal patch #30 ea Allergies Allergy/AdvReac Type Severity Reaction Status Date / Time No Known Allergies Allergy Verified 08/27/25 20:51 Review of Systems Review of Systems: Yes Unobtainable due to mental status (Due to alcohol intoxication) PMF Past Medical History Surgical History History of right inguinal hernia repair Family History Family History Mother Lung cancer Social History Social History Household Members: Significant Other Housing: Other Housing Other:: mobile home Do you presently have visiting nurse or other home services: No Alcohol intake: current Alcohol intake frequency: 3 or more drinks per day Alcohol type: hard liquor Patient Tobacco Use Status: Current everyday Tobacco user Tobacco use type: Cigarette Use of substances other than those prescribed or required for medical reasons: Yes Substance Use Type: Methamphetamine and Prescription Drugs Advance Directives: No Advance Directives Information Provided: Yes service: No Physical Exam ED Vital Signs: Vital Signs - 24 hr 08/27/25 20:58 08/27/25 23:09 08/28/25 02:36 Temperature 97.7 F 97.8 F 98.3 F Pulse Rate 85 85 76 Respiratory Rate 18 16 20 Blood Pressure 125/71 123/57 L 118/64 Pulse Oximetry 92 93 94 Oxygen Delivery Method Room Air Room Air Room Air BMI result Body Mass Index 32.3 Vital signs have been reviewed and appear to be correct. Blood pressure elevated. Heart rate normal. Respiratory rate normal. Temperature normal. Oxygen saturation normal. Appearance: Alert. Alcohol on breath, lethargic arousable to verbal stimuli. No acute distress. Head: Normal external exam. Normocephalic. Atraumatic. No Carter signs noted. No raccoon eyes noted Eyes: PERRLA. EOMI. Conjunctiva and sclera normal. Eyelids normal. ENT: TM's Normal. Pharynx normal. Uvula midline. Moist mucous membranes. No trismus noted. No drooling noted. No muffled voice noted. Neck: Normal inspection. Neck supple. FROM. No adenopathy. Thyroid Normal. No meningeal signs. No neck mass noted. CVS: Normal heart rate and rhythm. Heart sound normal. No murmurs noted. Pulses normal throughout. Respiratory: No respiratory distress. Painless inspiration. Breath sounds normal. No wheezes/rales/rhonchi noted. Chest nontender. No accessory muscle usage noted or decreased air movement noted. Abdomen: Soft and nontender. Bowel sounds normal in all 4 quadrants. No distention noted. No organomegaly noted. No visible injury noted. Back: No CVA tenderness. Full range of motion noted. Skin: Skin warm and dry. Normal skin color. Normal skin turgor. No rashes/lesions/lacerations noted. Extremities: No lower extremity edema. Extremities exhibit normal range of motion. Extremities nontender. Neuro: Sleeping easily arousable. Cranial nerve exam: II-XII are grossly intact No motor deficit. No sensory deficit. Reflexes normal. Course Reevaluation(s) Reevaluation #1: Patient is a poor historian at the moment secondary to intoxication, patient was brought in by the police under section 12 for endorsing SI statement earlier today that he declined now, patient will have a further evaluation when he is more sober, start physician observation await for care team evaluation when he is sober. Time: 22:51 Reevaluation #2: 10:35 AM 08/28/2025 (Dr. Patricio Carter): Time: 10:35 Date: 08/28/25 Provider: Patricio Carter, DO Physician observation ended Patient has been cleared for discharge by the CARE team. Will follow up as an outpatient. Medications Administered Discontinued Medications Generic Name Dose Route Start Last Admin Trade Name Maniq PRN Reason Stop Dose Admin Acetaminophen 975 mg 08/27/25 23:53 08/28/25 00:26 Acetaminophen 325 Mg Tablet PO 08/27/25 23:54 975 mg ONCE ONE Administration Medical Decision Making Differential Diagnosis Differential Diagnoses: The differential diagnosis associated with the presentation includes (Medical clearance, SI, HI, alcohol intoxication, alcohol withdrawal.) Admission/Observation Consideration of admission/observation: Escalation of care including admission/observation considered Lab Data MDM Lab Attestation statement: I reviewed the patient's lab results. 08/27/25 21:03 08/27/25 21:03 Labs: Lab Results 08/27/25 08/28/25 08/28/25 Range/Units 21:03 06:12 06:19 WBC 7.8 (4.8-10.8) X10*3/uL RBC 4.37 L (4.60-5.80) X10*6/uL Hgb 14.5 (14.0-18.0) g/dl Hct 41.1 L (42.0-52.0) % MCV 94.1 (80.0-98.0) fL MCH 33.2 H (27.0-33.0) pg MCHC 35.3 (31.0-36.0) g/dl RDW 13.7 (11.0-16.0) % Plt Count 199 D (160-400) X10*3/uL MPV 9.1 L (9.4-12.4) fL Immature Gran % (Auto) 0.3 (0.0-0.4) % Neut % (Auto) 36.8 L (45-73) % Lymph % (Auto) 51.2 H (20-40) % Alpine % (Auto) 6.4 (2-11) % Eos % (Auto) 3.6 (0-4) % Baso % (Auto) 1.7 (0-2) % Lymph # (Auto) 4.0 (1.2-4.9) X10*3/uL Alpine # (Auto) 0.5 (0.1-1.2) X10*3/uL Eos # (Auto) 0.3 (0.0-0.4) X10*3/uL Baso # (Auto) 0.1 (0.0-0.2) X10*3/uL Abs Immat Gran (auto) 0.02 (0.00-0.03) X10*3/uL Absolute Neuts (auto) 2.9 (2.0-8.3) x10*3/uL Absolute Nucleated RBC 0.000 (0.0-0.012) X10*3/uL Nucleated RBC % (auto) 0.0 (0.0-0.2) /100WBC Sodium 147 H (135-145) mmol/L Potassium 3.4 (3.3-5.1) mmol/L Chloride 111 H (96-108) mmol/L Carbon Dioxide 25 (22-29) mmol/L Anion Gap 14 (12-20) BUN 11 (9-16) mg/dL Creatinine 0.51 (0.5-1.4) mg/dL Estim Creat Clear Calc 232.6 Estimated GFR > 60 Random Glucose 103 (60-115) mg/dL Calcium 9.0 (8.4-10.2) mg/dL Total Bilirubin 0.2 (0.0-1.0) mg/dL AST 35 (5-37) U/L ALT 25 (0-40) U/L Alkaline Phosphatase 148 H (39-117) U/L Total Protein 7.4 (6.5-8.0) g/dL Albumin 4.4 (3.5-5.0) g/dL Urine Color Dark Yellow Urine Appearance Clear Urine pH 5.5 (5.0-9.0) Ur Specific [place] >= 1.030 H (1.005-1.025) Urine Protein Trace (Neg-Trace) mg/dL Urine Glucose (UA) Negative (Negative) mg/dL Urine Ketones Negative (Negative) mg/dL Urine Blood Negative (Negative) Urine Nitrite Negative (Negative) Ur Leukocyte Esterase Negative (Negative) Urine Opiates Screen Not Detected (Not Detect) Ur Buprenorphine Scrn Not Detected (Not Detect) ng/mL Ur Oxycodone Screen Not Detected (Not Detect) ng/mL Urine Methadone Screen Positive H (Not Detect) ng/mL Urine Fentanyl Screen Not Detected (Not Detect) Ur Barbiturates Screen POSITIVE H (Not Detect) Ur Phencyclidine Scrn Not Detected (Not Detect) Ur Amphetamines Screen Not Detected (Not Detect) U Benzodiazepines Scrn POSITIVE H (Not Detect) Urine Cocaine Screen Not Detected (Not Detect) U Marijuana (THC) Screen Not Detected (Not Detect) Ethyl Alcohol 398 H* mg/dL Discharge Plan Discharge Clinical Impression: Alcohol intoxication Patient Disposition: Home, Self-Care Additional Instructions: You were seen in our Emergency Department today for treatment of a behavioral health issue. It is important after your visit that you follow up with either your behavioral health provider or a primary care doctor within 7 days.? If you have trouble finding a therapist you can reach out to [address] [phone] The National Suicide and Crisis Lifeline can be reached 7 days a week 24 hours a day.? Call 988 to speak with someone.? Return for any worsening symptoms or concerns such as thoughts of self harm or harm to others. Please call 911 if you feel your mental health is worsening.? Prescriptions: No Action cyclobenzaprine 10 mg tablet 10 mg PO TID PRN (Reason: muscle spasms) clonidine HCl 0.1 mg tablet 0.1 mg PO TID PRN (Reason: RLS) trazodone 50 mg tablet 50 - 100 mg PO BEDTIME PRN (Reason: insomnia) gabapentin 300 mg capsule 300 mg PO BID acamprosate 333 mg tablet,delayed release (DR/EC) 333 mg PO TID methadone 10 mg/mL Concentrate 10 mg PO DAILY nicotine 21 mg/24 hr Patch 24 Hour 21 mg transdermal DAILY 14 Days Qty: 30 0RF nicotine (polacrilex) 2 mg Lozenge 2 mg buccal Q1H PRN (Reason: Nicotine Cravings) 20 Days Qty: 30 0RF divalproex 250 mg Tablet,Delayed Release (Dr/Ec) 750 mg PO Q12H 30 Days Qty: 180 3RF Interventions: Sophia-Suicide Risk Severity Scale Last Done: 08/27/25 20:58 Print Language: Japanese
[2025-08-27 23:09] VITALS: BP 123/57; PULSE 85; RESP 16; TEMP 36.6; O2SAT 93
--- NOTE | 2025-08-28 00:08 | PC.NURSE ---
Assumed care of pt, presents with etoh and suicidal ideation, pt plan was by spectroscopist was making statements to co-workers regarding his plan, states he lost his job on 08/25/2025 and has been drinking since, denies drug use, currently denying HI/SI,aaox4, nad
[2025-08-28 02:36] VITALS: BP 118/64; PULSE 76; RESP 20; TEMP 36.8; O2SAT 94
--- NOTE | 2025-08-28 06:14 | PC.NURSE ---
Assumed care of patient at 0610, pt calm and cooperative, no apparent distress noted. Currently pending CARE team
[2025-08-28 06:26] LABS: Appearance Urine Clear; Glucose Urine UA Negative (Negative); PH 5.5 (5.0-9.0); Specific Gravity - Urine >= 1.030 (1.005-1.025)
[2025-08-28 06:43] LABS: Cannabinoid Screen Urine Not Detected (Not Detect)
--- NOTE | 2025-08-28 08:20 | PC.NURSE ---
Assumed care, report received. Pt eats breakfast and goes back to sleep. He remains calm and cooperative.
[2025-08-28 10:53] VITALS: BP 118/64; PULSE 76; RESP 20; TEMP 36.8
--- NOTE | 2025-08-28 11:16 | HE.PHANOTE ---
Re Methadone Patient receives 10mg daily from [facility], last dose 08/27/25 per nursing verificaiton.
[2025-08-28] MEDS: methADONE HCl 20 MG/2 ML ORAL.CONC 10 MG PO (11:26)
== END 2025-08-28 11:37 | disposition home or self-care (01) ==
PROVIDERS: Emergency Provider Emergency Medicine; PCP Internal Medicine
DX: F10.129 Alcohol abuse with intoxication, unspecified (principal); R45.851 Suicidal ideations; Z13.39 Encounter for screening examination for other mental health and behavioral disorders; Z65.3 Problems related to other legal circumstances
CPT/HCPCS: 36415; 80053; 80307; 81003; 85025; 99285; S9485